=== PATIENT | female | born 1945 | race Asian ===

== ENCOUNTER 2018-04-04 00:31 | Inpatient (IN) | payer MEDICARE, OTHER ==
[~2018-04-04] VITALS: Ht 149.9 cm; Wt 49.4 kg
[2018-04-04 03:29] VITALS: BP 161/83
[2018-04-04] MEDS ORDERED: ACETAMINOPHEN 325 MG TABLET PO PRN (04:00)
[2018-04-04] MEDS ORDERED: MAGNESIUM HYDROXIDE 2,400 MG/30 ML ORAL.SUSP. PO PRN (04:00)
[2018-04-04] MEDS ORDERED: MAG HYDROX/AL HYDROX/SIMETH 30 ML ORAL.SUSP PO PRN (04:00)
[2018-04-04] MEDS ORDERED: METHYL SALICYLATE/MENTHOL TOPICAL OINTMENT 29GM TUBE. TP PRN (04:00)
[2018-04-04] MEDS ORDERED: CHOL10003 PO (04:17)
[2018-04-04] MEDS ORDERED: DONE10TA7 PO (04:17)
[2018-04-04] MEDS ORDERED: DILT120C93 PO (04:17)
[2018-04-04] MEDS ORDERED: DOCU100C28 PO (04:17)
[2018-04-04] MEDS ORDERED: METF500T16 PO (04:17)
[2018-04-04] MEDS ORDERED: MAGN400T3 PO (04:17)
[2018-04-04] MEDS ORDERED: OMEP20TA8 PO (04:17)
[2018-04-04] MEDS ORDERED: CRESTOR10 MG PO (04:17)
[2018-04-04] MEDS ORDERED: OMEG1CAP38 PO (04:17)
[2018-04-04] MEDS ORDERED: POLY2500 PO (04:17)
[2018-04-04] MEDS ORDERED: FLUT50DI IH (04:17)
[2018-04-04] MEDS ORDERED: ASPI-630 PO (04:17)
[2018-04-04] MEDS ORDERED: ALLO100T PO (04:17)
[2018-04-04] MEDS ORDERED: GLYC1SUP RC (04:17)
[2018-04-04] MEDS ORDERED: CYAN100031 PO (04:17)
[2018-04-04] MEDS ORDERED: FERR325T14 PO (04:17)
[2018-04-04] MEDS ORDERED: LORA10TA3 PO (04:17)
[2018-04-04] MEDS ORDERED: CARB25TA3 PO (04:17)
[2018-04-04] MEDS ORDERED: ONDA8TAB9 PO (04:17)
[2018-04-04] MEDS ORDERED: CARB1TAB2 PO (04:17)
[2018-04-04] MEDS ORDERED: MELA3TAB2 PO (04:17)
[2018-04-04] MEDS ORDERED: TELM40TA PO (04:17)
[2018-04-04] MEDS ORDERED: RASA1TAB2 PO (04:17)
[2018-04-04] MEDS ORDERED: ONDANSETRON ODT 4 MG TAB.RAPDIS PO PRN (04:45)
[2018-04-04] MEDS ORDERED: POLYETHYLENE GLYCOL 3350 17 GM PACKET. PO PRN (04:45)
[2018-04-04] MEDS ORDERED: GLYCERIN ADULT 1 SUPP.RECT. RC PRN (04:45)
--- NOTE | 2018-04-04 05:05 | EKG ---
[address] [address] Test Date: 2018-04-04 Test Time: 05:03:41 Pat Name: DORIS GORMAN Department: Room: [facility] Gender: F Test Manager: : [id number] Requested By: MARINA GROVES Order Number: [id number] Reading MD: Sebastien Flannery MD Measurements Intervals [place] Rate: 62 P: 0 CA: 250 QRS: 66 QRSD: 90 T: 41 QT: 446 QTc: 455 Interpretive Statements SINUS RHYTHM PROLONGED CA INTERVAL Electronically Signed On 04-07-2018 11:06:06 CDT by Sebastien Flannery MD
[2018-04-04 05:48] VITALS: BP 123/71
[2018-04-04 07:41] LABS: BASO % 1 % (0-3); EOS # 0.1 x10^3/uL (0.0-0.7); EOS % 1 % (0-3); HEMATOCRIT 33.7 % (36.0-47.0); HEMOGLOBIN 11.6 g/dL (12.0-15.5); LYMPH # 1.7 x10^3/uL (1.0-4.8); LYMPH % 24 % (24-48); MEAN CORPUSCULAR HEMOGLOBIN 33 pg (25-35); MEAN CORPUSCULAR HGB CONC 35 g/dL (31-37); MEAN CORPUSCULAR VOLUME 95 fL (79-100); MONO # 0.4 x10^3/uL (0.0-1.1); MONO % 6 % (0-9); NEUT # 4.8 x10^3uL (1.8-7.7); NEUT % 68 % (31-73); PLATELET COUNT 310 x10^3/uL (140-400); RED BLOOD COUNT 3.54 x10^6/uL (3.50-5.40); RED CELL DISTRIBUTION WIDTH 13.9 % (11.5-14.5)
[2018-04-04 07:49] LABS: ALBUMIN 3.2 g/dL (3.4-5.0); ALBUMIN/GLOBULIN RATIO 0.9 (1.0-1.7); CALCIUM 9.5 mg/dL (8.5-10.1); CREATININE 0.7 mg/dL (0.6-1.0); MAGNESIUM 1.7 mg/dL (1.8-2.4); POTASSIUM 4.1 mmol/L (3.5-5.1); TOTAL BILIRUBIN 0.3 mg/dL (0.2-1.0); TOTAL PROTEIN 6.6 g/dL (6.4-8.2)
[2018-04-04] MEDS: DOCUSATE SODIUM 100 MG CAPSULE PO SCH ×2 (08:08→20:26)
[2018-04-04] MEDS: OMEGA-3 FATTY ACIDS/FISH OIL 1,000 MG CAPSULE. PO SCH (08:08)
[2018-04-04] MEDS: ALLOPURINOL 100 MG TABLET. PO SCH ×3 (08:08→20:27)
[2018-04-04] MEDS: metFORMIN 500 MG TABLET PO SCH ×2 (08:08→17:00)
[2018-04-04] MEDS: PANTOPRAZOLE 40 MG TABLET. PO SCH (08:08)
[2018-04-04] MEDS: CARBIDOPA/LEVODOPA 25/100MG TABLET PO SCH ×4 (08:08→20:27)
[2018-04-04] MEDS: FERROUS SULFATE 325 MG TABLET. PO SCH (08:09)
[2018-04-04] MEDS: CYANOCOBALAMIN (VITAMIN B-12) 1,000 MCG TABLET. PO SCH (08:09)
[2018-04-04] MEDS: MAGNESIUM OXIDE 400 MG TABLET PO SCH ×2 (08:09→20:27)
[2018-04-04] MEDS: CHOLECALCIFEROL (VITAMIN D3) 1,000 UNIT TABLET PO SCH ×2 (08:09→20:27)
[2018-04-04] MEDS: LOSARTAN 50 MG TABLET. PO SCH (08:09)
[2018-04-04] MEDS: FLUTICASONE 50MCG/NASAL SPRAY 16GM BOTTLE. NS SCH (09:00)
[2018-04-04] MEDS: CARBIDOPA 25 MG PO SCH ×3 (09:00→21:00)
[2018-04-04 13:35] LABS: THYROID STIM HORMONE (TSH) 2.067 uIU/mL (0.358-3.740)
[2018-04-04 16:17] VITALS: BP 147/72
[2018-04-04] MEDS: CETIRIZINE HCL 10 MG TABLET PO SCH (17:00)
[2018-04-04] MEDS: ASPIRIN 81 MG TAB.CHEW PO SCH (18:35)
[2018-04-04] MEDS: DONEPEZIL HCL 10 MG TABLET PO SCH (18:35)
[2018-04-04 20:12] LABS: THYROXINE 7.5 ug/dL (4.5-12.0)
--- NOTE | 2018-04-04 20:17 | PDOC ---
Exam Note: Linus Note: Please also refer to the separate dictated note~for this date of service dictated separately.~Patient seen individually. Discussed the patient with Nursing staff reviewed the chart.~Reviewed interim history and current functioning. Reviewed vital signs,~Labs/ Radiology~and current medications noted below. Continue current treatment with the changes noted in the dictated addendum note Assessment: Vital Signs: Vital Signs Date Time Temp Pulse Resp B/P (MAP) Pulse Ox O2 Delivery O2 Flow Rate FiO2 04/04/18 16:17 97.8 65 16 147/72 (97) 98 Room Air I&O Intake and Output 04/04/18 07:00 Intake Total 100 ml Balance 100 ml Intake Oral 100 ml # Voids 1 Labs: Laboratory Tests Test 04/04/18 06:51 White Blood Count 7.0 x10^3/uL (4.0-11.0) Red Blood Count 3.54 x10^6/uL (3.50-5.40) Hemoglobin 11.6 g/dL (12.0-15.5) L Hematocrit 33.7 % (36.0-47.0) L Mean Corpuscular Volume 95 fL (79-100) Mean Corpuscular Hemoglobin 33 pg (25-35) Mean Corpuscular Hemoglobin Concent 35 g/dL (31-37) Red Cell Distribution Width 13.9 % (11.5-14.5) Platelet Count 310 x10^3/uL (140-400) Neutrophils (%) (Auto) 68 % (31-73) Lymphocytes (%) (Auto) 24 % (24-48) Monocytes (%) (Auto) 6 % (0-9) Eosinophils (%) (Auto) 1 % (0-3) Basophils (%) (Auto) 1 % (0-3) Neutrophils # (Auto) 4.8 x10^3uL (1.8-7.7) Lymphocytes # (Auto) 1.7 x10^3/uL (1.0-4.8) Monocytes # (Auto) 0.4 x10^3/uL (0.0-1.1) Eosinophils # (Auto) 0.1 x10^3/uL (0.0-0.7) Basophils # (Auto) 0.0 x10^3/uL (0.0-0.2) Sodium Level 140 mmol/L (136-145) Potassium Level 4.1 mmol/L (3.5-5.1) Chloride Level 103 mmol/L (98-107) Carbon Dioxide Level 33 mmol/L (21-32) H Anion Gap 4 (6-14) L Blood Urea Nitrogen 12 mg/dL (7-20) Creatinine 0.7 mg/dL (0.6-1.0) Estimated GFR (Cockcroft-Gault) 82.0 BUN/Creatinine Ratio 17 (6-20) Glucose Level 103 mg/dL (70-99) H Calcium Level 9.5 mg/dL (8.5-10.1) Magnesium Level 1.7 mg/dL (1.8-2.4) L Iron Level 56 ug/dL (50-170) Total Iron Binding Capacity 272 ug/dL (250-450) Iron Saturation 21 % (15-34) Total Bilirubin 0.3 mg/dL (0.2-1.0) Aspartate Amino Transferase (AST) 20 U/L (15-37) Alanine Aminotransferase (ALT) 28 U/L (14-59) Alkaline Phosphatase 76 U/L (46-116) Total Protein 6.6 g/dL (6.4-8.2) Albumin 3.2 g/dL (3.4-5.0) L Albumin/Globulin Ratio 0.9 (1.0-1.7) L Triglycerides Level 45 mg/dL (0-150) Cholesterol Level 119 mg/dL (0-200) LDL Cholesterol, Calculated 56 mg/dL (0-100) VLDL Cholesterol, Calculated 9 mg/dL (0-40) Non-HDL Cholesterol Calculated 65 mg/dL (0-129) HDL Cholesterol 54 mg/dL (40-60) Cholesterol/HDL Ratio 2.0 Thyroid Stimulating Hormone (TSH) 2.067 uIU/mL (0.358-3.740) Thyroxine (T4) 7.5 ug/dL (4.5-12.0) Total Triiodothyronine (TT3) 121 ng/dL (71-180) Current Medications: Meds: Current Medications Acetaminophen (Tylenol) 650 mg PRN Q6HRS PRN PO PAIN / TEMP; Start 04/04/18 at 04:00 Multi-Ingredient Ointment (Analgesic [place]) 1 torie PRN QID PRN TP MUSCLE PAIN; Start 04/04/18 at 04:00 Al Hydroxide/Mg Hydroxide (Mylanta Plus Xs) 15 ml PRN AFTMEALHC PRN PO DYSPEPSIA; Start 04/04/18 at 04:00 Magnesium Hydroxide (Milk Of Magnesia) 2,400 mg PRN QHS PRN PO CONSTIPATION; Start 04/04/18 at 04:00 Donepezil HCl (Aricept) 10 mg DAILYWSUP PO Last administered on 04/04/18at 18:35 ; Start 04/04/18 at 17:00 Melatonin 12 mg QHS PRN PO INSOMNIA; Start 04/04/18 at 04:30 Carbidopa/Levodopa (Sinemet 25/100) 1 tab QID PO Last administered on 18:35; Start 04/04/18 at 09:00 Vitamin D (Vitamin D3) 2,000 unit BID PO Last administered on 04/04/18 08:09; Start 04/04/18 at 09:00 Ferrous Sulfate (Feosol) 325 mg DAILY PO Last administered on 04/04/18 08:09; Start 04/04/18 at 09:00 Glycerin (Sani-Supp Adult) 1 supp PRN DAILY PRN RC CONSTIPATION; Start at 04:45 Allopurinol (Zyloprim) 100 mg TID PO Last administered on 04/04/18at 13:10; Start 04/04/18 at 09:00 Aspirin (Children'S Aspirin) 81 mg DAILYWSUP PO Last administered on 04/04/18 18:35; Start 04/04/18 at 17:00 Cyanocobalamin (Vitamin B-12) 1,000 mcg DAILY PO Last administered on at 08:09; Start 04/04/18 at 09:00 Diltiazem HCl (Cardizem 24hr Cd) 120 mg DAILY PO Last administered on 08:08; Start 04/04/18 at 09:00 Docusate Sodium (Colace) 100 mg BID PO Last administered on 04/04/18at 08:08; Start 04/04/18 at 09:00 Fluticasone Propionate (Flonase) 2 spray DAILY NS ; Start 04/04/18 at 09:00 Magnesium Oxide (Magnesium Oxide) 400 mg BID PO Last administered on 10/5/18at 08:09; Start 04/04/18 at 09:00 Metformin HCl (Glucophage) 500 mg BIDWMEALS PO Last administered on 04/04/18at 17:00; Start 04/04/18 at 08:00 Fish Oil (Fish Oil) 1,000 mg DAILY PO Last administered on 04/04/18at 08:08; Start 04/04/18 at 09:00 Ondansetron HCl (Zofran Odt) 8 mg PRN BID PRN PO NAUSEA/VOMITING; Start at 04:45 Polyethylene Glycol (miraLAX) 17 gm PRN DAILY PRN PO CONSTIPATION; Start at 04:45 Non-Formulary Medication (Carbidopa ) 25 mg TID PO ; Start 04/04/18 at 09:00; Status UNV Cetirizine HCl (ZyrTEC) 10 mg DAILYWSUP PO Last administered on 04/04/18at 17:00 ; Start 04/04/18 at 17:00 Pantoprazole Sodium (Protonix) 40 mg DAILY@0730 PO Last administered on at 08:08; Start 04/04/18 at 07:30 Non-Formulary Medication (Rasagiline Mesylate (Azilect)) 1 mg DAILY PO ; Start 04/04/18 at 09:00; Status UNV Atorvastatin Calcium (Lipitor) 40 mg HS PO ; Start 04/04/18 at 21:00 Losartan Potassium (Cozaar) 50 mg DAILY PO Last administered on 04/04/18at 08:09 ; Start 04/04/18 at 09:00 Active Scripts Active Reported Ferrous Sulfate 325 Mg Tablet 325 Mg PO DAILY Polyethylene Glycol 3350 2,500 Gm Powder 17 Gm PO PRN DAILY PRN Docusate Sodium 100 Mg Capsule 100 Mg PO BID Micardis (Telmisartan) 40 Mg Tablet 40 Mg PO DAILY Tiazac (Diltiazem Hcl) 120 Mg Capsule.er 120 Mg PO DAILY Allopurinol 100 Mg Tablet 100 Mg PO TID Azilect (Rasagiline Mesylate) 1 Mg Tablet 1 Mg PO DAILY Omeprazole 20 Mg Tablet.dr 20 Mg PO DAILY@0730 Metformin Hcl 500 Mg Tablet 500 Mg PO BIDWMEALS Aspirin 81 Mg Tab.chew 81 Mg PO DAILYWSUP Adult Glycerin (Glycerin) 1 Each Supp.rect 1 Each RC PRN DAILY PRN B-12 (Cyanocobalamin (Vitamin B-12)) 1,000 Mcg Tablet.er 1,000 Mcg PO DAILY Carbidopa 25 Mg Tablet 25 Mg PO TID Donepezil Hcl 10 Mg Tablet 10 Mg PO DAILYWSUP Magnesium Oxide 400 Mg Tablet 400 Mg PO BID Vitamin D3 (Cholecalciferol (Vitamin D3)) 1,000 Unit Tablet 2,000 Unit PO BID Zofran (Ondansetron Hcl) 8 Mg Tablet 8 Mg PO BID Crestor (Rosuvastatin Calcium) 10 Mg Tablet 10 Mg PO HS Flovent 50MCG Diskus (Fluticasone Propionate) 50 Mcg Disk.w.dev 50 Mcg IH DAILY Loratadine 10 Mg Tablet 10 Mg PO DAILYWSUP [place] 3 Fish Oil Softgel ([place]-3 Fatty Acids/Fish Oil) 1 Each Capsule.dr 1 Each PO DAILY Melatonin 3 Mg Tablet 12 Mg PO HS Sinemet 25-100 Mg Tablet (Carbidopa/Levodopa) 1 Each Tablet 1 Each PO QID I have reviewed the current psychotropics carefully including drug interactions. Risk benefit ratio favors no change other than as noted in my dictated progress note. Diagnosis: Problems: (1) Anxiety disorder (2) Major depressive disorder, recurrent episode MARINA GROVES MD Apr 04, 2018 20:17
[2018-04-04] MEDS: MELATONIN 3 MG TABLET PO PRN (20:27)
[2018-04-04] MEDS: ATORVASTATIN CALCIUM 20 MG TABLET PO SCH (20:30)
[2018-04-04 23:08] LABS: HEMOGLOBIN A1C 6.3 % (4.8-5.6)
[2018-04-05 05:55] VITALS: BP 109/67
[2018-04-05] MEDS: ALLOPURINOL 100 MG TABLET. PO SCH ×3 (08:16→21:01)
[2018-04-05] MEDS: LOSARTAN 50 MG TABLET. PO SCH (08:16)
[2018-04-05] MEDS: OMEGA-3 FATTY ACIDS/FISH OIL 1,000 MG CAPSULE. PO SCH (08:16)
[2018-04-05] MEDS: CHOLECALCIFEROL (VITAMIN D3) 1,000 UNIT TABLET PO SCH ×2 (08:16→21:01)
[2018-04-05] MEDS: CYANOCOBALAMIN (VITAMIN B-12) 1,000 MCG TABLET. PO SCH (08:16)
[2018-04-05] MEDS: metFORMIN 500 MG TABLET PO SCH ×2 (08:16→17:00)
[2018-04-05] MEDS: MAGNESIUM OXIDE 400 MG TABLET PO SCH ×2 (08:16→21:01)
[2018-04-05] MEDS: DOCUSATE SODIUM 100 MG CAPSULE PO SCH ×2 (08:16→21:01)
[2018-04-05] MEDS: CARBIDOPA/LEVODOPA 25/100MG TABLET PO SCH ×4 (08:16→21:01)
[2018-04-05] MEDS: CARBIDOPA 25 MG PO SCH ×3 (08:17→21:02)
[2018-04-05] MEDS: FLUTICASONE 50MCG/NASAL SPRAY 16GM BOTTLE. NS SCH (08:17)
[2018-04-05] MEDS: PANTOPRAZOLE 40 MG TABLET. PO SCH (08:17)
[2018-04-05] MEDS: FERROUS SULFATE 325 MG TABLET. PO SCH (08:18)
[2018-04-05] MEDS ORDERED: [UNRECOGNIZED DRUG - OTHER] (11:55)
[2018-04-05 15:48] VITALS: BP 129/75
[2018-04-05] MEDS: CETIRIZINE HCL 10 MG TABLET PO SCH (17:26)
[2018-04-05] MEDS: ASPIRIN 81 MG TAB.CHEW PO SCH (17:26)
[2018-04-05] MEDS: DONEPEZIL HCL 10 MG TABLET PO SCH (17:27)
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
[2018-04-05] MEDS: MELATONIN 3 MG TABLET PO PRN (21:01)
[2018-04-05] MEDS: ATORVASTATIN CALCIUM 20 MG TABLET PO SCH (21:01)
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
[2018-04-06 06:30] VITALS: BP 159/95
[2018-04-06] MEDS ORDERED: BISACODYL 10 MG SUPP.RECT PR PRN (07:30)
[2018-04-06] MEDS: FLUTICASONE 50MCG/NASAL SPRAY 16GM BOTTLE. NS SCH (08:09)
[2018-04-06] MEDS: LOSARTAN 50 MG TABLET. PO SCH (08:09)
[2018-04-06] MEDS: ALLOPURINOL 100 MG TABLET. PO SCH ×3 (08:10→20:21)
[2018-04-06] MEDS: FERROUS SULFATE 325 MG TABLET. PO SCH (08:10)
[2018-04-06] MEDS: MAGNESIUM OXIDE 400 MG TABLET PO SCH ×2 (08:10→20:19)
[2018-04-06] MEDS: metFORMIN 500 MG TABLET PO SCH ×2 (08:10→18:35)
[2018-04-06] MEDS: PANTOPRAZOLE 40 MG TABLET. PO SCH (08:10)
[2018-04-06] MEDS: OMEGA-3 FATTY ACIDS/FISH OIL 1,000 MG CAPSULE. PO SCH (08:10)
[2018-04-06] MEDS: CYANOCOBALAMIN (VITAMIN B-12) 1,000 MCG TABLET. PO SCH (08:10)
[2018-04-06] MEDS: DOCUSATE SODIUM 100 MG CAPSULE PO SCH ×2 (08:10→20:21)
[2018-04-06] MEDS: CHOLECALCIFEROL (VITAMIN D3) 1,000 UNIT TABLET PO SCH ×2 (08:10→20:21)
[2018-04-06] MEDS: CARBIDOPA/LEVODOPA 25/100MG TABLET PO SCH ×4 (08:10→20:19)
[2018-04-06] MEDS: CARBIDOPA 25 MG PO SCH ×3 (08:11→20:22)
[2018-04-06] MEDS: SERTRALINE 50 MG TABLET. PO SCH (08:12)
[2018-04-06 15:24] VITALS: BP 155/76
[2018-04-06] MEDS: ASPIRIN 81 MG TAB.CHEW PO SCH (18:35)
[2018-04-06] MEDS: CETIRIZINE HCL 10 MG TABLET PO SCH (18:35)
[2018-04-06] MEDS: DONEPEZIL HCL 10 MG TABLET PO SCH (18:36)
[2018-04-06] MEDS: ATORVASTATIN CALCIUM 20 MG TABLET PO SCH (20:21)
[2018-04-06] MEDS: MELATONIN 3 MG TABLET PO PRN (20:21)
--- NOTE | 2018-04-06 20:22 | PDOC ---
Exam Note: Linus Note: Late entry for date of service March. Please also refer to the separate dictated note~for this date of service dictated separately.~Patient seen individually. Discussed the patient with Nursing staff reviewed the chart.~ Reviewed interim history and current functioning. Reviewed vital signs,~Labs/ Radiology~and current medications noted below. Continue current treatment with the changes noted in the dictated addendum note Assessment: Vital Signs: VS - Last 72 Hours, by Label Date Time Temp Pulse Resp B/P (MAP) Pulse Ox O2 Delivery O2 Flow Rate FiO2 04/06/18 15:24 97.4 60 18 155/76 (102) 97 Aerosol Mask 04/06/18 08:10 70 159/95 04/06/18 08:09 70 159/95 04/06/18 06:30 97.3 70 14 159/95 (116) 96 04/05/18 15:48 97.3 66 20 129/75 (93) 96 04/05/18 08:16 60 109/67 04/05/18 08:16 60 109/67 04/05/18 05:55 98.2 60 16 109/67 (81) 96 Room Air 04/04/18 16:17 97.8 65 16 147/72 (97) 98 Room Air 04/04/18 08:09 67 123/71 04/04/18 08:08 67 123/71 04/04/18 05:48 97.7 67 16 123/71 (88) 95 Room Air 04/04/18 03:29 97.7 66 161/83 (109) 99 Vital Signs Date Time Temp Pulse Resp B/P (MAP) Pulse Ox O2 Delivery O2 Flow Rate FiO2 04/06/18 15:24 97.4 60 18 155/76 (102) 97 Aerosol Mask I&O Intake and Output 04/06/18 06:59 Intake Total 460 ml Balance 460 ml Intake Oral 460 ml Current Medications: Meds: Current Medications Acetaminophen (Tylenol) 650 mg PRN Q6HRS PRN PO PAIN / TEMP; Start 04/04/18 at 04:00 Multi-Ingredient Ointment (Analgesic [place]) 1 torie PRN QID PRN TP MUSCLE PAIN; Start 04/04/18 at 04:00 Al Hydroxide/Mg Hydroxide (Mylanta Plus Xs) 15 ml PRN AFTMEALHC PRN PO DYSPEPSIA; Start 04/04/18 at 04:00 Magnesium Hydroxide (Milk Of Magnesia) 2,400 mg PRN QHS PRN PO CONSTIPATION Last administered on 04/06/18 07:33; Start 04/04/18 at 04:00 Donepezil HCl (Aricept) 10 mg DAILYWSUP PO Last administered on 04/06/18 18:36 ; Start 04/04/18 at 17:00 Melatonin 12 mg QHS PRN PO INSOMNIA Last administered on 04/05/18 21:01; Start 04/04/18 at 04:30 Carbidopa/Levodopa (Sinemet 25/100) 1 tab QID PO Last administered on 18:35; Start 04/04/18 at 09:00 Vitamin D (Vitamin D3) 2,000 unit BID PO Last administered on 04/06/18 08:10; Start 04/04/18 at 09:00 Ferrous Sulfate (Feosol) 325 mg DAILY PO Last administered on 04/06/18 08:10; Start 04/04/18 at 09:00 Glycerin (Sani-Supp Adult) 1 supp PRN DAILY PRN RC CONSTIPATION; Start at 04:45 Allopurinol (Zyloprim) 100 mg TID PO Last administered on 04/06/18 13:49; Start 04/04/18 at 09:00 Aspirin (Children'S Aspirin) 81 mg DAILYWSUP PO Last administered on 04/06/18 18:35; Start 04/04/18 at 17:00 Cyanocobalamin (Vitamin B-12) 1,000 mcg DAILY PO Last administered on 08:10; Start 04/04/18 at 09:00 Diltiazem HCl (Cardizem 24hr Cd) 120 mg DAILY PO Last administered on 08:10; Start 04/04/18 at 09:00 Docusate Sodium (Colace) 100 mg BID PO Last administered on 04/06/18 08:10; Start 04/04/18 at 09:00 Fluticasone Propionate (Flonase) 2 spray DAILY NS Last administered on 08:09; Start 04/04/18 at 09:00 Magnesium Oxide (Magnesium Oxide) 400 mg BID PO Last administered on 04/06/18 08:10; Start 04/04/18 at 09:00 Metformin HCl (Glucophage) 500 mg BIDWMEALS PO Last administered on 04/06/18 18:35; Start 04/04/18 at 08:00 Fish Oil (Fish Oil) 1,000 mg DAILY PO Last administered on 04/06/18 08:10; Start 04/04/18 at 09:00 Ondansetron HCl (Zofran Odt) 8 mg PRN BID PRN PO NAUSEA/VOMITING; Start at 04:45 Polyethylene Glycol (miraLAX) 17 gm PRN DAILY PRN PO CONSTIPATION; Start at 04:45 Non-Formulary Medication (Carbidopa ) 25 mg TID PO Last administered on 13:49; Start 04/04/18 at 09:00 Cetirizine HCl (ZyrTEC) 10 mg DAILYWSUP PO Last administered on 04/06/18 18:35 ; Start 04/04/18 at 17:00 Pantoprazole Sodium (Protonix) 40 mg DAILY@0730 PO Last administered on 08:10; Start 04/04/18 at 07:30 Non-Formulary Medication (Rasagiline Mesylate (Azilect)) 1 mg DAILY PO Last administered on 04/05/18 13:35; Start 04/04/18 at 09:00 Atorvastatin Calcium (Lipitor) 40 mg HS PO Last administered on 04/05/18 21:01 ; Start 04/04/18 at 21:00 Losartan Potassium (Cozaar) 50 mg DAILY PO Last administered on 04/06/18 08:09 ; Start 04/04/18 at 09:00 Influenza Virus Vaccine (Afluria Trivalent [id number] Syringe) 0.5 ml ONCE ONCE VAX IM Last administered on 04/06/18 11:05; Start 04/06/18 at 09:00; Stop 04/06/18 at 09:01; Status DC Sertraline HCl (Zoloft) 50 mg DAILY PO Last administered on 04/06/18 08:12; Start 04/06/18 at 09:00 Bisacodyl (Dulcolax Supp) 10 mg PRN DAILY PRN [place] CONSTIPATION Last administered on 10/7/18at 09:00; Start 04/06/18 at 07:30; Stop 04/06/18 at 10:04 ; Status DC Active Scripts Active Reported [ceta klen] Ferrous Sulfate 325 Mg Tablet 325 Mg PO DAILY Polyethylene Glycol 3350 2,500 Gm Powder 17 Gm PO PRN DAILY PRN Docusate Sodium 100 Mg Capsule 100 Mg PO BID Micardis (Telmisartan) 40 Mg Tablet 40 Mg PO DAILY Tiazac (Diltiazem Hcl) 120 Mg Capsule.er 120 Mg PO DAILY Allopurinol 100 Mg Tablet 100 Mg PO TID Azilect (Rasagiline Mesylate) 1 Mg Tablet 1 Mg PO DAILY Omeprazole 20 Mg Tablet.dr 20 Mg PO DAILY@0730 Metformin Hcl 500 Mg Tablet 500 Mg PO BIDWMEALS Aspirin 81 Mg Tab.chew 81 Mg PO DAILYWSUP Adult Glycerin (Glycerin) 1 Each Supp.rect 1 Each RC PRN DAILY PRN B-12 (Cyanocobalamin (Vitamin B-12)) 1,000 Mcg Tablet.er 1,000 Mcg PO DAILY Carbidopa 25 Mg Tablet 25 Mg PO TID Donepezil Hcl 10 Mg Tablet 10 Mg PO DAILYWSUP Magnesium Oxide 400 Mg Tablet 400 Mg PO BID Vitamin D3 (Cholecalciferol (Vitamin D3)) 1,000 Unit Tablet 2,000 Unit PO BID Zofran (Ondansetron Hcl) 8 Mg Tablet 8 Mg PO BID Crestor (Rosuvastatin Calcium) 10 Mg Tablet 10 Mg PO HS Flovent 50MCG Diskus (Fluticasone Propionate) 50 Mcg Disk.w.dev 50 Mcg IH DAILY Loratadine 10 Mg Tablet 10 Mg PO DAILYWSUP [place] 3 Fish Oil Softgel ([place]-3 Fatty Acids/Fish Oil) 1 Each Capsule.dr 1 Each PO DAILY Melatonin 3 Mg Tablet 12 Mg PO HS Sinemet 25-100 Mg Tablet (Carbidopa/Levodopa) 1 Each Tablet 1 Each PO QID I have reviewed the current psychotropics carefully including drug interactions. Risk benefit ratio favors no change other than as noted in my dictated progress note. Diagnosis: Problems: (1) Anxiety disorder (2) Major depressive disorder, recurrent episode (3) Impulse control disorder MARINA GROVES MD Apr 06, 2018 20:22
--- NOTE | 2018-04-06 20:22 | PDOC ---
Exam Note: Linus Note: Please also refer to the separate dictated note~for this date of service dictated separately.~Patient seen individually. Discussed the patient with Nursing staff reviewed the chart.~Reviewed interim history and current functioning. Reviewed vital signs,~Labs/ Radiology~and current medications noted below. Continue current treatment with the changes noted in the dictated addendum note Assessment: Vital Signs: Vital Signs Date Time Temp Pulse Resp B/P (MAP) Pulse Ox O2 Delivery O2 Flow Rate FiO2 04/06/18 15:24 97.4 60 18 155/76 (102) 97 Aerosol Mask I&O Intake and Output 04/06/18 06:59 Intake Total 460 ml Balance 460 ml Intake Oral 460 ml Current Medications: Meds: Current Medications Acetaminophen (Tylenol) 650 mg PRN Q6HRS PRN PO PAIN / TEMP; Start 04/04/18 at 04:00 Multi-Ingredient Ointment (Analgesic [place]) 1 torie PRN QID PRN TP MUSCLE PAIN; Start 04/04/18 at 04:00 Al Hydroxide/Mg Hydroxide (Mylanta Plus Xs) 15 ml PRN AFTMEALHC PRN PO DYSPEPSIA; Start 04/04/18 at 04:00 Magnesium Hydroxide (Milk Of Magnesia) 2,400 mg PRN QHS PRN PO CONSTIPATION Last administered on 04/06/18at 07:33; Start 04/04/18 at 04:00 Donepezil HCl (Aricept) 10 mg DAILYWSUP PO Last administered on 04/06/18at 18:36 ; Start 04/04/18 at 17:00 Melatonin 12 mg QHS PRN PO INSOMNIA Last administered on 04/05/18at 21:01; Start 04/04/18 at 04:30 Carbidopa/Levodopa (Sinemet 25/100) 1 tab QID PO Last administered on at 18:35; Start 04/04/18 at 09:00 Vitamin D (Vitamin D3) 2,000 unit BID PO Last administered on 04/06/18at 08:10; Start 04/04/18 at 09:00 Ferrous Sulfate (Feosol) 325 mg DAILY PO Last administered on 04/06/18at 08:10; Start 04/04/18 at 09:00 Glycerin (Sani-Supp Adult) 1 supp PRN DAILY PRN RC CONSTIPATION; Start at 04:45 Allopurinol (Zyloprim) 100 mg TID PO Last administered on 04/06/18 13:49; Start 04/04/18 at 09:00 Aspirin (Children'S Aspirin) 81 mg DAILYWSUP PO Last administered on 04/06/18 18:35; Start 04/04/18 at 17:00 Cyanocobalamin (Vitamin B-12) 1,000 mcg DAILY PO Last administered on 08:10; Start 04/04/18 at 09:00 Diltiazem HCl (Cardizem 24hr Cd) 120 mg DAILY PO Last administered on 08:10; Start 04/04/18 at 09:00 Docusate Sodium (Colace) 100 mg BID PO Last administered on 04/06/18 08:10; Start 04/04/18 at 09:00 Fluticasone Propionate (Flonase) 2 spray DAILY NS Last administered on 08:09; Start 04/04/18 at 09:00 Magnesium Oxide (Magnesium Oxide) 400 mg BID PO Last administered on 04/06/18 08:10; Start 04/04/18 at 09:00 Metformin HCl (Glucophage) 500 mg BIDWMEALS PO Last administered on 04/06/18 18:35; Start 04/04/18 at 08:00 Fish Oil (Fish Oil) 1,000 mg DAILY PO Last administered on 04/06/18 08:10; Start 04/04/18 at 09:00 Ondansetron HCl (Zofran Odt) 8 mg PRN BID PRN PO NAUSEA/VOMITING; Start at 04:45 Polyethylene Glycol (miraLAX) 17 gm PRN DAILY PRN PO CONSTIPATION; Start at 04:45 Non-Formulary Medication (Carbidopa ) 25 mg TID PO Last administered on 13:49; Start 04/04/18 at 09:00 Cetirizine HCl (ZyrTEC) 10 mg DAILYWSUP PO Last administered on 04/06/18 18:35 ; Start 04/04/18 at 17:00 Pantoprazole Sodium (Protonix) 40 mg DAILY@0730 PO Last administered on 08:10; Start 04/04/18 at 07:30 Non-Formulary Medication (Rasagiline Mesylate (Azilect)) 1 mg DAILY PO Last administered on 04/05/18at 13:35; Start 04/04/18 at 09:00 Atorvastatin Calcium (Lipitor) 40 mg HS PO Last administered on 04/05/18at 21:01 ; Start 04/04/18 at 21:00 Losartan Potassium (Cozaar) 50 mg DAILY PO Last administered on 04/06/18at 08:09 ; Start 04/04/18 at 09:00 Influenza Virus Vaccine (Afluria Trivalent [id number] Syringe) 0.5 ml ONCE ONCE VAX IM Last administered on 04/06/18at 11:05; Start 04/06/18 at 09:00; Stop 04/06/18 at 09:01; Status DC Sertraline HCl (Zoloft) 50 mg DAILY PO Last administered on 04/06/18at 08:12; Start 04/06/18 at 09:00 Bisacodyl (Dulcolax Supp) 10 mg PRN DAILY PRN [place] CONSTIPATION Last administered on 04/06/18at 09:00; Start 04/06/18 at 07:30; Stop 04/06/18 at 10:04 ; Status DC Active Scripts Active Reported [ceta klen] Ferrous Sulfate 325 Mg Tablet 325 Mg PO DAILY Polyethylene Glycol 3350 2,500 Gm Powder 17 Gm PO PRN DAILY PRN Docusate Sodium 100 Mg Capsule 100 Mg PO BID Micardis (Telmisartan) 40 Mg Tablet 40 Mg PO DAILY Tiazac (Diltiazem Hcl) 120 Mg Capsule.er 120 Mg PO DAILY Allopurinol 100 Mg Tablet 100 Mg PO TID Azilect (Rasagiline Mesylate) 1 Mg Tablet 1 Mg PO DAILY Omeprazole 20 Mg Tablet.dr 20 Mg PO DAILY@0730 Metformin Hcl 500 Mg Tablet 500 Mg PO BIDWMEALS Aspirin 81 Mg Tab.chew 81 Mg PO DAILYWSUP Adult Glycerin (Glycerin) 1 Each Supp.rect 1 Each RC PRN DAILY PRN B-12 (Cyanocobalamin (Vitamin B-12)) 1,000 Mcg Tablet.er 1,000 Mcg PO DAILY Carbidopa 25 Mg Tablet 25 Mg PO TID Donepezil Hcl 10 Mg Tablet 10 Mg PO DAILYWSUP Magnesium Oxide 400 Mg Tablet 400 Mg PO BID Vitamin D3 (Cholecalciferol (Vitamin D3)) 1,000 Unit Tablet 2,000 Unit PO BID Zofran (Ondansetron Hcl) 8 Mg Tablet 8 Mg PO BID Crestor (Rosuvastatin Calcium) 10 Mg Tablet 10 Mg PO HS Flovent 50MCG Diskus (Fluticasone Propionate) 50 Mcg Disk.w.dev 50 Mcg IH DAILY Loratadine 10 Mg Tablet 10 Mg PO DAILYWSUP [place] 3 Fish Oil Softgel ([place]-3 Fatty Acids/Fish Oil) 1 Each Capsule.dr 1 Each PO DAILY Melatonin 3 Mg Tablet 12 Mg PO HS Sinemet 25-100 Mg Tablet (Carbidopa/Levodopa) 1 Each Tablet 1 Each PO QID I have reviewed the current psychotropics carefully including drug interactions. Risk benefit ratio favors no change other than as noted in my dictated progress note. Diagnosis: Problems: (1) Anxiety disorder (2) Major depressive disorder, recurrent episode (3) Impulse control disorder MARINA GROVES MD Apr 06, 2018 20:22
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
[2018-04-07 05:58] VITALS: BP 122/63
[2018-04-07] MEDS: SERTRALINE 50 MG TABLET. PO SCH (07:54)
[2018-04-07] MEDS: DOCUSATE SODIUM 100 MG CAPSULE PO SCH ×2 (07:54→19:45)
[2018-04-07] MEDS: FERROUS SULFATE 325 MG TABLET. PO SCH (07:54)
[2018-04-07] MEDS: PANTOPRAZOLE 40 MG TABLET. PO SCH (07:55)
[2018-04-07] MEDS: CHOLECALCIFEROL (VITAMIN D3) 1,000 UNIT TABLET PO SCH ×2 (07:55→19:45)
[2018-04-07] MEDS: metFORMIN 500 MG TABLET PO SCH ×2 (07:55→17:45)
[2018-04-07] MEDS: MAGNESIUM OXIDE 400 MG TABLET PO SCH ×2 (07:55→19:46)
[2018-04-07] MEDS: CYANOCOBALAMIN (VITAMIN B-12) 1,000 MCG TABLET. PO SCH (07:55)
[2018-04-07] MEDS: OMEGA-3 FATTY ACIDS/FISH OIL 1,000 MG CAPSULE. PO SCH (07:55)
[2018-04-07] MEDS: CARBIDOPA/LEVODOPA 25/100MG TABLET PO SCH ×4 (07:55→19:46)
[2018-04-07] MEDS: LOSARTAN 50 MG TABLET. PO SCH (07:57)
[2018-04-07] MEDS: ALLOPURINOL 100 MG TABLET. PO SCH ×3 (07:57→19:46)
[2018-04-07] MEDS: FLUTICASONE 50MCG/NASAL SPRAY 16GM BOTTLE. NS SCH (07:58)
[2018-04-07] MEDS: CARBIDOPA 25 MG PO SCH ×3 (07:59→19:46)
[2018-04-07 15:52] VITALS: BP 142/68
[2018-04-07] MEDS: DONEPEZIL HCL 10 MG TABLET PO SCH (17:45)
[2018-04-07] MEDS: CETIRIZINE HCL 10 MG TABLET PO SCH (17:45)
[2018-04-07] MEDS: ASPIRIN 81 MG TAB.CHEW PO SCH (17:45)
[2018-04-07] MEDS: ATORVASTATIN CALCIUM 20 MG TABLET PO SCH (19:45)
--- NOTE | 2018-04-07 20:52 | PDOC ---
Exam Note: Linus Note: Please also refer to the separate dictated note~for this date of service dictated separately.~Patient seen individually. Discussed the patient with Nursing staff reviewed the chart.~Reviewed interim history and current functioning. Reviewed vital signs,~Labs/ Radiology~and current medications noted below. Continue current treatment with the changes noted in the dictated addendum note Assessment: Vital Signs: Vital Signs Date Time Temp Pulse Resp B/P (MAP) Pulse Ox O2 Delivery O2 Flow Rate FiO2 04/07/18 15:52 98.0 60 16 142/68 (92) 98 04/07/18 05:58 Room Air I&O Intake and Output 04/07/18 06:59 Intake Total 720 ml Balance 720 ml Intake Oral 720 ml Current Medications: Meds: Current Medications Acetaminophen (Tylenol) 650 mg PRN Q6HRS PRN PO PAIN / TEMP; Start 04/04/18 at 04:00 Multi-Ingredient Ointment (Analgesic [place]) 1 torie PRN QID PRN TP MUSCLE PAIN; Start 04/04/18 at 04:00 Al Hydroxide/Mg Hydroxide (Mylanta Plus Xs) 15 ml PRN AFTMEALHC PRN PO DYSPEPSIA; Start 04/04/18 at 04:00 Magnesium Hydroxide (Milk Of Magnesia) 2,400 mg PRN QHS PRN PO CONSTIPATION Last administered on 04/06/18at 07:33; Start 04/04/18 at 04:00 Donepezil HCl (Aricept) 10 mg DAILYWSUP PO Last administered on 04/07/18 17:45 ; Start 04/04/18 at 17:00 Melatonin 12 mg QHS PRN PO INSOMNIA Last administered on 04/06/18 20:21; Start 04/04/18 at 04:30 Carbidopa/Levodopa (Sinemet 25/100) 1 tab QID PO Last administered on 19:46; Start 04/04/18 at 09:00 Vitamin D (Vitamin D3) 2,000 unit BID PO Last administered on 04/07/18 19:45; Start 04/04/18 at 09:00 Ferrous Sulfate (Feosol) 325 mg DAILY PO Last administered on 04/07/18at 07:54; Start 04/04/18 at 09:00 Glycerin (Sani-Supp Adult) 1 supp PRN DAILY PRN RC CONSTIPATION; Start at 04:45 Allopurinol (Zyloprim) 100 mg TID PO Last administered on 04/07/18 19:46; Start 04/04/18 at 09:00 Aspirin (Children'S Aspirin) 81 mg DAILYWSUP PO Last administered on 04/07/18 17:45; Start 04/04/18 at 17:00 Cyanocobalamin (Vitamin B-12) 1,000 mcg DAILY PO Last administered on 07:55; Start 04/04/18 at 09:00 Diltiazem HCl (Cardizem 24hr Cd) 120 mg DAILY PO Last administered on 07:56; Start 04/04/18 at 09:00 Docusate Sodium (Colace) 100 mg BID PO Last administered on 04/07/18 19:45; Start 04/04/18 at 09:00 Fluticasone Propionate (Flonase) 2 spray DAILY NS Last administered on 07:58; Start 04/04/18 at 09:00 Magnesium Oxide (Magnesium Oxide) 400 mg BID PO Last administered on 04/07/18 19:46; Start 04/04/18 at 09:00 Metformin HCl (Glucophage) 500 mg BIDWMEALS PO Last administered on 04/07/18 17:45; Start 04/04/18 at 08:00 Fish Oil (Fish Oil) 1,000 mg DAILY PO Last administered on 04/07/18 07:55; Start 04/04/18 at 09:00 Ondansetron HCl (Zofran Odt) 8 mg PRN BID PRN PO NAUSEA/VOMITING; Start at 04:45 Polyethylene Glycol (miraLAX) 17 gm PRN DAILY PRN PO CONSTIPATION; Start at 04:45 Non-Formulary Medication (Carbidopa ) 25 mg TID PO Last administered on 19:46; Start 04/04/18 at 09:00 Cetirizine HCl (ZyrTEC) 10 mg DAILYWSUP PO Last administered on 04/07/18 17:45 ; Start 04/04/18 at 17:00 Pantoprazole Sodium (Protonix) 40 mg DAILY@0730 PO Last administered on 10/8/ 18at 07:55; Start 04/04/18 at 07:30 Non-Formulary Medication (Rasagiline Mesylate (Azilect)) 1 mg DAILY PO Last administered on 04/07/18at 07:57; Start 04/04/18 at 09:00 Atorvastatin Calcium (Lipitor) 40 mg HS PO Last administered on 04/07/18at 19:45 ; Start 04/04/18 at 21:00 Losartan Potassium (Cozaar) 50 mg DAILY PO Last administered on 04/07/18at 07:57 ; Start 04/04/18 at 09:00 Influenza Virus Vaccine (Afluria Trivalent [id number] Syringe) 0.5 ml ONCE ONCE VAX IM Last administered on 04/06/18at 11:05; Start 04/06/18 at 09:00; Stop 04/06/18 at 09:01; Status DC Sertraline HCl (Zoloft) 50 mg DAILY PO Last administered on 04/07/18at 07:54; Start 04/06/18 at 09:00 Bisacodyl (Dulcolax Supp) 10 mg PRN DAILY PRN [place] CONSTIPATION Last administered on 04/06/18at 09:00; Start 04/06/18 at 07:30; Stop 04/06/18 at 10:04 ; Status DC Active Scripts Active Reported [ceta klen] Ferrous Sulfate 325 Mg Tablet 325 Mg PO DAILY Polyethylene Glycol 3350 2,500 Gm Powder 17 Gm PO PRN DAILY PRN Docusate Sodium 100 Mg Capsule 100 Mg PO BID Micardis (Telmisartan) 40 Mg Tablet 40 Mg PO DAILY Tiazac (Diltiazem Hcl) 120 Mg Capsule.er 120 Mg PO DAILY Allopurinol 100 Mg Tablet 100 Mg PO TID Azilect (Rasagiline Mesylate) 1 Mg Tablet 1 Mg PO DAILY Omeprazole 20 Mg Tablet.dr 20 Mg PO DAILY@0730 Metformin Hcl 500 Mg Tablet 500 Mg PO BIDWMEALS Aspirin 81 Mg Tab.chew 81 Mg PO DAILYWSUP Adult Glycerin (Glycerin) 1 Each Supp.rect 1 Each RC PRN DAILY PRN B-12 (Cyanocobalamin (Vitamin B-12)) 1,000 Mcg Tablet.er 1,000 Mcg PO DAILY Carbidopa 25 Mg Tablet 25 Mg PO TID Donepezil Hcl 10 Mg Tablet 10 Mg PO DAILYWSUP Magnesium Oxide 400 Mg Tablet 400 Mg PO BID Vitamin D3 (Cholecalciferol (Vitamin D3)) 1,000 Unit Tablet 2,000 Unit PO BID Zofran (Ondansetron Hcl) 8 Mg Tablet 8 Mg PO BID Crestor (Rosuvastatin Calcium) 10 Mg Tablet 10 Mg PO HS Flovent 50MCG Diskus (Fluticasone Propionate) 50 Mcg Disk.w.dev 50 Mcg IH DAILY Loratadine 10 Mg Tablet 10 Mg PO DAILYWSUP [place] 3 Fish Oil Softgel ([place]-3 Fatty Acids/Fish Oil) 1 Each Capsule.dr 1 Each PO DAILY Melatonin 3 Mg Tablet 12 Mg PO HS Sinemet 25-100 Mg Tablet (Carbidopa/Levodopa) 1 Each Tablet 1 Each PO QID I have reviewed the current psychotropics carefully including drug interactions. Risk benefit ratio favors no change other than as noted in my dictated progress note. Diagnosis: Problems: (1) Anxiety disorder (2) Major depressive disorder, recurrent episode (3) Impulse control disorder MAIRNA GROVES MD Apr 07, 2018 20:52
[2018-04-08 06:10] VITALS: BP 133/79
[2018-04-08] MEDS: CHOLECALCIFEROL (VITAMIN D3) 1,000 UNIT TABLET PO SCH ×2 (07:51→20:25)
[2018-04-08] MEDS: OMEGA-3 FATTY ACIDS/FISH OIL 1,000 MG CAPSULE. PO SCH (07:51)
[2018-04-08] MEDS: ALLOPURINOL 100 MG TABLET. PO SCH ×3 (07:52→20:25)
[2018-04-08] MEDS: SERTRALINE 50 MG TABLET. PO SCH (07:52)
[2018-04-08] MEDS: DOCUSATE SODIUM 100 MG CAPSULE PO SCH ×2 (07:52→20:25)
[2018-04-08] MEDS: PANTOPRAZOLE 40 MG TABLET. PO SCH (07:52)
[2018-04-08] MEDS: FERROUS SULFATE 325 MG TABLET. PO SCH (07:52)
[2018-04-08] MEDS: metFORMIN 500 MG TABLET PO SCH ×2 (07:52→17:27)
[2018-04-08] MEDS: CYANOCOBALAMIN (VITAMIN B-12) 1,000 MCG TABLET. PO SCH (07:52)
[2018-04-08] MEDS: MAGNESIUM OXIDE 400 MG TABLET PO SCH ×2 (07:55→20:25)
[2018-04-08] MEDS: CARBIDOPA 25 MG PO SCH ×3 (07:55→20:26)
[2018-04-08] MEDS: LOSARTAN 50 MG TABLET. PO SCH (07:55)
[2018-04-08] MEDS: CARBIDOPA/LEVODOPA 25/100MG TABLET PO SCH ×4 (07:55→20:25)
[2018-04-08] MEDS: FLUTICASONE 50MCG/NASAL SPRAY 16GM BOTTLE. NS SCH (08:00)
[2018-04-08 16:40] VITALS: BP 118/55
[2018-04-08] MEDS ORDERED: POLYVINYL ALCOHOL/POVIDONE/PF OPHTH SOLUTION DROPERETTE. OU PRN (16:45)
[2018-04-08] MEDS: CETIRIZINE HCL 10 MG TABLET PO SCH (17:27)
[2018-04-08] MEDS: ASPIRIN 81 MG TAB.CHEW PO SCH (17:27)
[2018-04-08] MEDS: DONEPEZIL HCL 10 MG TABLET PO SCH (17:30)
[2018-04-08] MEDS: ATORVASTATIN CALCIUM 20 MG TABLET PO SCH (20:25)
[2018-04-08] MEDS: MELATONIN 3 MG TABLET PO PRN (20:26)
--- NOTE | 2018-04-08 21:06 | PDOC ---
Exam Note: Linus Note: Please also refer to the separate dictated note~for this date of service dictated separately.~Patient seen individually. Discussed the patient with Nursing staff reviewed the chart.~Reviewed interim history and current functioning. Reviewed vital signs,~Labs/ Radiology~and current medications noted below. Continue current treatment with the changes noted in the dictated addendum note Assessment: Vital Signs: Vital Signs Date Time Temp Pulse Resp B/P (MAP) Pulse Ox O2 Delivery O2 Flow Rate FiO2 04/08/18 16:40 97.6 61 20 118/55 (76) 98 04/07/18 05:58 Room Air I&O Intake and Output 04/08/18 07:00 Intake Total 720 ml Balance 720 ml Intake Oral 720 ml # Voids 1 Current Medications: Meds: Current Medications Acetaminophen (Tylenol) 650 mg PRN Q6HRS PRN PO PAIN / TEMP; Start 04/04/18 at 04:00 Multi-Ingredient Ointment (Analgesic [place]) 1 torie PRN QID PRN TP MUSCLE PAIN; Start 04/04/18 at 04:00 Al Hydroxide/Mg Hydroxide (Mylanta Plus Xs) 15 ml PRN AFTMEALHC PRN PO DYSPEPSIA; Start 04/04/18 at 04:00 Magnesium Hydroxide (Milk Of Magnesia) 2,400 mg PRN QHS PRN PO CONSTIPATION Last administered on 04/06/18at 07:33; Start 04/04/18 at 04:00 Donepezil HCl (Aricept) 10 mg DAILYWSUP PO Last administered on 04/08/18at 17:30 ; Start 04/04/18 at 17:00 Melatonin 12 mg QHS PRN PO INSOMNIA Last administered on 04/08/18at 20:26; Start 04/04/18 at 04:30 Carbidopa/Levodopa (Sinemet 25/100) 1 tab QID PO Last administered on 20:25; Start 04/04/18 at 09:00 Vitamin D (Vitamin D3) 2,000 unit BID PO Last administered on 04/08/18at 20:25; Start 04/04/18 at 09:00 Ferrous Sulfate (Feosol) 325 mg DAILY PO Last administered on 04/08/18at 07:52; Start 04/04/18 at 09:00 Glycerin (Sani-Supp Adult) 1 supp PRN DAILY PRN RC CONSTIPATION; Start at 04:45 Allopurinol (Zyloprim) 100 mg TID PO Last administered on 04/08/18 20:25; Start 04/04/18 at 09:00 Aspirin (Children'S Aspirin) 81 mg DAILYWSUP PO Last administered on 04/08/18 17:27; Start 04/04/18 at 17:00 Cyanocobalamin (Vitamin B-12) 1,000 mcg DAILY PO Last administered on 07:52; Start 04/04/18 at 09:00 Diltiazem HCl (Cardizem 24hr Cd) 120 mg DAILY PO Last administered on 07:53; Start 04/04/18 at 09:00 Docusate Sodium (Colace) 100 mg BID PO Last administered on 04/08/18 20:25; Start 04/04/18 at 09:00 Fluticasone Propionate (Flonase) 2 spray DAILY NS Last administered on 08:00; Start 04/04/18 at 09:00 Magnesium Oxide (Magnesium Oxide) 400 mg BID PO Last administered on 04/08/18 20:25; Start 04/04/18 at 09:00 Metformin HCl (Glucophage) 500 mg BIDWMEALS PO Last administered on 04/08/18 17:27; Start 04/04/18 at 08:00 Fish Oil (Fish Oil) 1,000 mg DAILY PO Last administered on 04/08/18 07:51; Start 04/04/18 at 09:00 Ondansetron HCl (Zofran Odt) 8 mg PRN BID PRN PO NAUSEA/VOMITING; Start at 04:45 Polyethylene Glycol (miraLAX) 17 gm PRN DAILY PRN PO CONSTIPATION; Start at 04:45 Non-Formulary Medication (Carbidopa ) 25 mg TID PO Last administered on 20:26; Start 04/04/18 at 09:00 Cetirizine HCl (ZyrTEC) 10 mg DAILYWSUP PO Last administered on 04/08/18 17:27 ; Start 04/04/18 at 17:00 Pantoprazole Sodium (Protonix) 40 mg DAILY@0730 PO Last administered on at 07:52; Start 04/04/18 at 07:30 Non-Formulary Medication (Rasagiline Mesylate (Azilect)) 1 mg DAILY PO Last administered on 04/08/18at 07:58; Start 04/04/18 at 09:00 Atorvastatin Calcium (Lipitor) 40 mg HS PO Last administered on 04/08/18at 20:25 ; Start 04/04/18 at 21:00 Losartan Potassium (Cozaar) 50 mg DAILY PO Last administered on 04/08/18at 07:55 ; Start 04/04/18 at 09:00 Influenza Virus Vaccine (Afluria Trivalent [id number] Syringe) 0.5 ml ONCE ONCE VAX IM Last administered on 04/06/18at 11:05; Start 04/06/18 at 09:00; Stop 04/06/18 at 09:01; Status DC Sertraline HCl (Zoloft) 50 mg DAILY PO Last administered on 04/08/18at 07:52; Start 04/06/18 at 09:00 Bisacodyl (Dulcolax Supp) 10 mg PRN DAILY PRN [place] CONSTIPATION Last administered on 04/06/18at 09:00; Start 04/06/18 at 07:30; Stop 04/06/18 at 10:04 ; Status DC Artificial Tears (Refresh Classic) 1 drop PRN Q15MIN PRN OU DRY EYE; Start 04/08/18 at 16:45 Active Scripts Active Reported [ceta klen] Ferrous Sulfate 325 Mg Tablet 325 Mg PO DAILY Polyethylene Glycol 3350 2,500 Gm Powder 17 Gm PO PRN DAILY PRN Docusate Sodium 100 Mg Capsule 100 Mg PO BID Micardis (Telmisartan) 40 Mg Tablet 40 Mg PO DAILY Tiazac (Diltiazem Hcl) 120 Mg Capsule.er 120 Mg PO DAILY Allopurinol 100 Mg Tablet 100 Mg PO TID Azilect (Rasagiline Mesylate) 1 Mg Tablet 1 Mg PO DAILY Omeprazole 20 Mg Tablet.dr 20 Mg PO DAILY@0730 Metformin Hcl 500 Mg Tablet 500 Mg PO BIDWMEALS Aspirin 81 Mg Tab.chew 81 Mg PO DAILYWSUP Adult Glycerin (Glycerin) 1 Each Supp.rect 1 Each RC PRN DAILY PRN B-12 (Cyanocobalamin (Vitamin B-12)) 1,000 Mcg Tablet.er 1,000 Mcg PO DAILY Carbidopa 25 Mg Tablet 25 Mg PO TID Donepezil Hcl 10 Mg Tablet 10 Mg PO DAILYWSUP Magnesium Oxide 400 Mg Tablet 400 Mg PO BID Vitamin D3 (Cholecalciferol (Vitamin D3)) 1,000 Unit Tablet 2,000 Unit PO BID Zofran (Ondansetron Hcl) 8 Mg Tablet 8 Mg PO BID Crestor (Rosuvastatin Calcium) 10 Mg Tablet 10 Mg PO HS Flovent 50MCG Diskus (Fluticasone Propionate) 50 Mcg Disk.w.dev 50 Mcg IH DAILY Loratadine 10 Mg Tablet 10 Mg PO DAILYWSUP [place] 3 Fish Oil Softgel ([place]-3 Fatty Acids/Fish Oil) 1 Each Capsule.dr 1 Each PO DAILY Melatonin 3 Mg Tablet 12 Mg PO HS Sinemet 25-100 Mg Tablet (Carbidopa/Levodopa) 1 Each Tablet 1 Each PO QID I have reviewed the current psychotropics carefully including drug interactions. Risk benefit ratio favors no change other than as noted in my dictated progress note. Diagnosis: Problems: (1) Anxiety disorder (2) Major depressive disorder, recurrent episode (3) Impulse control disorder MARINA GROVES MD Apr 08, 2018 21:06
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
[2018-04-09 06:06] VITALS: BP 139/83
[2018-04-09] MEDS: DOCUSATE SODIUM 100 MG CAPSULE PO SCH ×2 (07:45→19:50)
[2018-04-09] MEDS: PANTOPRAZOLE 40 MG TABLET. PO SCH (07:45)
[2018-04-09] MEDS: OMEGA-3 FATTY ACIDS/FISH OIL 1,000 MG CAPSULE. PO SCH (07:45)
[2018-04-09] MEDS: CHOLECALCIFEROL (VITAMIN D3) 1,000 UNIT TABLET PO SCH ×2 (07:45→19:50)
[2018-04-09] MEDS: FLUTICASONE 50MCG/NASAL SPRAY 16GM BOTTLE. NS SCH (07:45)
[2018-04-09] MEDS: FERROUS SULFATE 325 MG TABLET. PO SCH (07:46)
[2018-04-09] MEDS: metFORMIN 500 MG TABLET PO SCH ×2 (07:46→17:50)
[2018-04-09] MEDS: ALLOPURINOL 100 MG TABLET. PO SCH ×3 (07:46→19:49)
[2018-04-09] MEDS: CYANOCOBALAMIN (VITAMIN B-12) 1,000 MCG TABLET. PO SCH (07:47)
[2018-04-09] MEDS: SERTRALINE 50 MG TABLET. PO SCH (07:47)
[2018-04-09] MEDS: LOSARTAN 50 MG TABLET. PO SCH (07:47)
[2018-04-09] MEDS: CARBIDOPA 25 MG PO SCH ×3 (07:49→19:53)
[2018-04-09] MEDS: CARBIDOPA/LEVODOPA 25/100MG TABLET PO SCH ×4 (07:51→19:50)
[2018-04-09] MEDS: MAGNESIUM OXIDE 400 MG TABLET PO SCH ×2 (07:51→19:50)
[2018-04-09 16:14] VITALS: BP 133/75
[2018-04-09] MEDS: ASPIRIN 81 MG TAB.CHEW PO SCH (17:49)
[2018-04-09] MEDS: CETIRIZINE HCL 10 MG TABLET PO SCH (17:49)
[2018-04-09] MEDS: DONEPEZIL HCL 10 MG TABLET PO SCH (17:49)
[2018-04-09] MEDS: ATORVASTATIN CALCIUM 20 MG TABLET PO SCH (19:49)
[2018-04-09] MEDS: MELATONIN 3 MG TABLET PO PRN (19:50)
--- NOTE | 2018-04-09 20:57 | PDOC ---
Exam Note: Linus Note: Please also refer to the separate dictated note~for this date of service dictated separately.~Patient seen individually. Discussed the patient with Nursing staff reviewed the chart.~Reviewed interim history and current functioning. Reviewed vital signs,~Labs/ Radiology~and current medications noted below. Continue current treatment with the changes noted in the dictated addendum note Assessment: Vital Signs: Vital Signs Date Time Temp Pulse Resp B/P (MAP) Pulse Ox O2 Delivery O2 Flow Rate FiO2 04/09/18 16:14 98.1 66 16 133/75 (94) 95 04/07/18 05:58 Room Air I&O Intake and Output 04/09/18 07:00 Intake Total 1320 ml Balance 1320 ml Intake Oral 1320 ml Current Medications: Meds: Current Medications Acetaminophen (Tylenol) 650 mg PRN Q6HRS PRN PO PAIN / TEMP; Start 04/04/18 at 04:00 Multi-Ingredient Ointment (Analgesic [place]) 1 torie PRN QID PRN TP MUSCLE PAIN; Start 04/04/18 at 04:00 Al Hydroxide/Mg Hydroxide (Mylanta Plus Xs) 15 ml PRN AFTMEALHC PRN PO DYSPEPSIA; Start 04/04/18 at 04:00 Magnesium Hydroxide (Milk Of Magnesia) 2,400 mg PRN QHS PRN PO CONSTIPATION Last administered on 04/06/18at 07:33; Start 04/04/18 at 04:00 Donepezil HCl (Aricept) 10 mg DAILYWSUP PO Last administered on 04/09/18at 17: 49; Start 04/04/18 at 17:00 Melatonin 12 mg QHS PRN PO INSOMNIA Last administered on 04/09/18 19:50; Start 04/04/18 at 04:30 Carbidopa/Levodopa (Sinemet 25/100) 1 tab QID PO Last administered on 19:50; Start 04/04/18 at 09:00 Vitamin D (Vitamin D3) 2,000 unit BID PO Last administered on 04/09/18 19:50 ; Start 04/04/18 at 09:00 Ferrous Sulfate (Feosol) 325 mg DAILY PO Last administered on 04/09/18at 07:46 ; Start 04/04/18 at 09:00 Glycerin (Sani-Supp Adult) 1 supp PRN DAILY PRN RC CONSTIPATION; Start at 04:45 Allopurinol (Zyloprim) 100 mg TID PO Last administered on 04/09/18 19:49; Start 04/04/18 at 09:00 Aspirin (Children'S Aspirin) 81 mg DAILYWSUP PO Last administered on 17:49; Start 04/04/18 at 17:00 Cyanocobalamin (Vitamin B-12) 1,000 mcg DAILY PO Last administered on 07:47; Start 04/04/18 at 09:00 Diltiazem HCl (Cardizem 24hr Cd) 120 mg DAILY PO Last administered on 07:46; Start 04/04/18 at 09:00 Docusate Sodium (Colace) 100 mg BID PO Last administered on 04/09/18 19:50; Start 04/04/18 at 09:00 Fluticasone Propionate (Flonase) 2 spray DAILY NS Last administered on 07:45; Start 04/04/18 at 09:00 Magnesium Oxide (Magnesium Oxide) 400 mg BID PO Last administered on 19:50; Start 04/04/18 at 09:00 Metformin HCl (Glucophage) 500 mg BIDWMEALS PO Last administered on 04/09/18 17:50; Start 04/04/18 at 08:00 Fish Oil (Fish Oil) 1,000 mg DAILY PO Last administered on 04/09/18 07:45; Start 04/04/18 at 09:00 Ondansetron HCl (Zofran Odt) 8 mg PRN BID PRN PO NAUSEA/VOMITING; Start at 04:45 Polyethylene Glycol (miraLAX) 17 gm PRN DAILY PRN PO CONSTIPATION; Start at 04:45 Non-Formulary Medication (Carbidopa ) 25 mg TID PO Last administered on 19:53; Start 04/04/18 at 09:00 Cetirizine HCl (ZyrTEC) 10 mg DAILYWSUP PO Last administered on 04/09/18 17: 49; Start 04/04/18 at 17:00 Pantoprazole Sodium (Protonix) 40 mg DAILY@0730 PO Last administered on at 07:45; Start 04/04/18 at 07:30 Non-Formulary Medication (Rasagiline Mesylate (Azilect)) 1 mg DAILY PO Last administered on 04/09/18at 07:49; Start 04/04/18 at 09:00 Atorvastatin Calcium (Lipitor) 40 mg HS PO Last administered on 04/09/18at 19: 49; Start 04/04/18 at 21:00 Losartan Potassium (Cozaar) 50 mg DAILY PO Last administered on 04/09/18at 07: 47; Start 04/04/18 at 09:00 Influenza Virus Vaccine (Afluria Trivalent [id number] Syringe) 0.5 ml ONCE ONCE VAX IM Last administered on 04/06/18at 11:05; Start 04/06/18 at 09:00; Stop 04/06/18 at 09:01; Status DC Sertraline HCl (Zoloft) 50 mg DAILY PO Last administered on 04/09/18at 07:47; Start 04/06/18 at 09:00; Stop 04/09/18 at 17:02; Status DC Bisacodyl (Dulcolax Supp) 10 mg PRN DAILY PRN [place] CONSTIPATION Last administered on 04/06/18at 09:00; Start 04/06/18 at 07:30; Stop 04/06/18 at 10:04 ; Status DC Artificial Tears (Refresh Classic) 1 drop PRN Q15MIN PRN OU DRY EYE Last administered on 04/09/18at 14:01; Start 04/08/18 at 16:45 Sertraline HCl (Zoloft) 75 mg DAILY PO ; Start 04/10/18 at 09:00 Active Scripts Active Reported [ceta klen] Ferrous Sulfate 325 Mg Tablet 325 Mg PO DAILY Polyethylene Glycol 3350 2,500 Gm Powder 17 Gm PO PRN DAILY PRN Docusate Sodium 100 Mg Capsule 100 Mg PO BID Micardis (Telmisartan) 40 Mg Tablet 40 Mg PO DAILY Tiazac (Diltiazem Hcl) 120 Mg Capsule.er 120 Mg PO DAILY Allopurinol 100 Mg Tablet 100 Mg PO TID Azilect (Rasagiline Mesylate) 1 Mg Tablet 1 Mg PO DAILY Omeprazole 20 Mg Tablet.dr 20 Mg PO DAILY@0730 Metformin Hcl 500 Mg Tablet 500 Mg PO BIDWMEALS Aspirin 81 Mg Tab.chew 81 Mg PO DAILYWSUP Adult Glycerin (Glycerin) 1 Each Supp.rect 1 Each RC PRN DAILY PRN B-12 (Cyanocobalamin (Vitamin B-12)) 1,000 Mcg Tablet.er 1,000 Mcg PO DAILY Carbidopa 25 Mg Tablet 25 Mg PO TID Donepezil Hcl 10 Mg Tablet 10 Mg PO DAILYWSUP Magnesium Oxide 400 Mg Tablet 400 Mg PO BID Vitamin D3 (Cholecalciferol (Vitamin D3)) 1,000 Unit Tablet 2,000 Unit PO BID Zofran (Ondansetron Hcl) 8 Mg Tablet 8 Mg PO BID Crestor (Rosuvastatin Calcium) 10 Mg Tablet 10 Mg PO HS Flovent 50MCG Diskus (Fluticasone Propionate) 50 Mcg Disk.w.dev 50 Mcg IH DAILY Loratadine 10 Mg Tablet 10 Mg PO DAILYWSUP [place] 3 Fish Oil Softgel ([place]-3 Fatty Acids/Fish Oil) 1 Each Capsule.dr 1 Each PO DAILY Melatonin 3 Mg Tablet 12 Mg PO HS Sinemet 25-100 Mg Tablet (Carbidopa/Levodopa) 1 Each Tablet 1 Each PO QID I have reviewed the current psychotropics carefully including drug interactions. Risk benefit ratio favors no change other than as noted in my dictated progress note. Diagnosis: Problems: (1) Anxiety disorder (2) Major depressive disorder, recurrent episode (3) Impulse control disorder MARINA GROVES MD Apr 09, 2018 20:57
--- NOTE | 2018-04-09 21:08 | PN ---
DATE: 04/08/2018 PSYCHIATRIC PROGRESS NOTE This late entry 04/08/2018 covers elements not covered in my initial note. SUBJECTIVE: I met with the patient in the evening. The patient slept 8 hours previous evening. The patient has been flat, withdrawn. Her did not visit on 04/08/2018. REVIEW OF SYSTEMS: No CV, , pulmonary, eye, ENT system symptoms on review. MENTAL STATUS EXAM: Oriented to herself and situation. Speech moderate latency, often responses monosyllabic. Abstraction fair, computation impaired, language function intact. Mood and affect somewhat depressed. No suicidal or homicidal ideation. LABORATORY DATA: Reviewed. IMPRESSION: Unchanged from initial note. PLAN: No change from initial note. Continue Aricept, Exelon, and Zoloft. MAN Michael GROVES MD DR: ROMAN/ino JOB#: [id number] / [id number]
[2018-04-10 06:11] VITALS: BP 117/72
[2018-04-10] MEDS: FLUTICASONE 50MCG/NASAL SPRAY 16GM BOTTLE. NS SCH (07:55)
[2018-04-10] MEDS: CARBIDOPA 25 MG PO SCH ×3 (07:55→20:42)
[2018-04-10] MEDS: DOCUSATE SODIUM 100 MG CAPSULE PO SCH ×2 (07:56→20:42)
[2018-04-10] MEDS: LOSARTAN 50 MG TABLET. PO SCH (07:57)
[2018-04-10] MEDS: CETIRIZINE HCL 10 MG TABLET PO SCH (07:57)
[2018-04-10] MEDS: OMEGA-3 FATTY ACIDS/FISH OIL 1,000 MG CAPSULE. PO SCH (07:57)
[2018-04-10] MEDS: CHOLECALCIFEROL (VITAMIN D3) 1,000 UNIT TABLET PO SCH ×2 (07:57→20:42)
[2018-04-10] MEDS: FERROUS SULFATE 325 MG TABLET. PO SCH (07:57)
[2018-04-10] MEDS: ALLOPURINOL 100 MG TABLET. PO SCH ×3 (07:57→20:42)
[2018-04-10] MEDS: metFORMIN 500 MG TABLET PO SCH ×2 (07:57→17:05)
[2018-04-10] MEDS: MAGNESIUM OXIDE 400 MG TABLET PO SCH ×2 (07:57→20:42)
[2018-04-10] MEDS: CARBIDOPA/LEVODOPA 25/100MG TABLET PO SCH ×4 (07:58→20:42)
[2018-04-10] MEDS: PANTOPRAZOLE 40 MG TABLET. PO SCH (07:58)
[2018-04-10] MEDS: CYANOCOBALAMIN (VITAMIN B-12) 1,000 MCG TABLET. PO SCH (07:58)
[2018-04-10] MEDS: SERTRALINE 50 MG TABLET. PO SCH (08:01)
[2018-04-10 16:37] VITALS: BP 149/75
[2018-04-10] MEDS: ASPIRIN 81 MG TAB.CHEW PO SCH (17:05)
[2018-04-10] MEDS: DONEPEZIL HCL 10 MG TABLET PO SCH (17:05)
[2018-04-10] MEDS: ATORVASTATIN CALCIUM 20 MG TABLET PO SCH (20:42)
--- NOTE | 2018-04-10 20:45 | PDOC ---
Exam Note: Linus Note: Please also refer to the separate dictated note~for this date of service dictated separately.~Patient seen individually. Discussed the patient with Nursing staff reviewed the chart.~Reviewed interim history and current functioning. Reviewed vital signs,~Labs/ Radiology~and current medications noted below. Continue current treatment with the changes noted in the dictated addendum note Assessment: Vital Signs: Vital Signs Date Time Temp Pulse Resp B/P (MAP) Pulse Ox O2 Delivery O2 Flow Rate FiO2 04/10/18 16:37 97.7 61 18 149/75 (99) 96 Room Air I&O Intake and Output 04/10/18 07:00 Intake Total 720 ml Balance 720 ml Intake Oral 720 ml # Voids 1 Current Medications: Meds: Current Medications Acetaminophen (Tylenol) 650 mg PRN Q6HRS PRN PO PAIN / TEMP; Start 04/04/18 at 04:00 Multi-Ingredient Ointment (Analgesic [place]) 1 torie PRN QID PRN TP MUSCLE PAIN; Start 04/04/18 at 04:00 Al Hydroxide/Mg Hydroxide (Mylanta Plus Xs) 15 ml PRN AFTMEALHC PRN PO DYSPEPSIA; Start 04/04/18 at 04:00 Magnesium Hydroxide (Milk Of Magnesia) 2,400 mg PRN QHS PRN PO CONSTIPATION Last administered on 04/06/18at 07:33; Start 04/04/18 at 04:00 Donepezil HCl (Aricept) 10 mg DAILYWSUP PO Last administered on 04/10/18at 17: 05; Start 04/04/18 at 17:00 Melatonin 12 mg QHS PRN PO INSOMNIA Last administered on 04/09/18at 19:50; Start 04/04/18 at 04:30 Carbidopa/Levodopa (Sinemet 25/100) 1 tab QID PO Last administered on at 20:42; Start 04/04/18 at 09:00 Vitamin D (Vitamin D3) 2,000 unit BID PO Last administered on 04/10/18at 20:42 ; Start 04/04/18 at 09:00 Ferrous Sulfate (Feosol) 325 mg DAILY PO Last administered on 04/10/18at 07:57 ; Start 04/04/18 at 09:00 Glycerin (Sani-Supp Adult) 1 supp PRN DAILY PRN RC CONSTIPATION; Start at 04:45 Allopurinol (Zyloprim) 100 mg TID PO Last administered on 04/10/18 20:42; Start 04/04/18 at 09:00 Aspirin (Children'S Aspirin) 81 mg DAILYWSUP PO Last administered on 17:05; Start 04/04/18 at 17:00 Cyanocobalamin (Vitamin B-12) 1,000 mcg DAILY PO Last administered on 07:58; Start 04/04/18 at 09:00 Diltiazem HCl (Cardizem 24hr Cd) 120 mg DAILY PO Last administered on 08:01; Start 04/04/18 at 09:00 Docusate Sodium (Colace) 100 mg BID PO Last administered on 04/10/18 20:42; Start 04/04/18 at 09:00 Fluticasone Propionate (Flonase) 2 spray DAILY NS Last administered on 07:55; Start 04/04/18 at 09:00 Magnesium Oxide (Magnesium Oxide) 400 mg BID PO Last administered on 20:42; Start 04/04/18 at 09:00 Metformin HCl (Glucophage) 500 mg BIDWMEALS PO Last administered on 04/10/18 17:05; Start 04/04/18 at 08:00 Fish Oil (Fish Oil) 1,000 mg DAILY PO Last administered on 04/10/18 07:57; Start 04/04/18 at 09:00 Ondansetron HCl (Zofran Odt) 8 mg PRN BID PRN PO NAUSEA/VOMITING; Start at 04:45 Polyethylene Glycol (miraLAX) 17 gm PRN DAILY PRN PO CONSTIPATION; Start at 04:45 Non-Formulary Medication (Carbidopa ) 25 mg TID PO Last administered on 20:42; Start 04/04/18 at 09:00 Cetirizine HCl (ZyrTEC) 10 mg DAILYWSUP PO Last administered on 04/10/18 07: 57; Start 04/04/18 at 17:00 Pantoprazole Sodium (Protonix) 40 mg DAILY@0730 PO Last administered on 10/11/ 18at 07:58; Start 04/04/18 at 07:30 Non-Formulary Medication (Rasagiline Mesylate (Azilect)) 1 mg DAILY PO Last administered on 04/10/18at 08:03; Start 04/04/18 at 09:00 Atorvastatin Calcium (Lipitor) 40 mg HS PO Last administered on 04/10/18at 20: 42; Start 04/04/18 at 21:00 Losartan Potassium (Cozaar) 50 mg DAILY PO Last administered on 04/10/18at 07: 57; Start 04/04/18 at 09:00 Influenza Virus Vaccine (Afluria Trivalent [id number] Syringe) 0.5 ml ONCE ONCE VAX IM Last administered on 04/06/18at 11:05; Start 04/06/18 at 09:00; Stop 04/06/18 at 09:01; Status DC Sertraline HCl (Zoloft) 50 mg DAILY PO Last administered on 04/09/18at 07:47; Start 04/06/18 at 09:00; Stop 04/09/18 at 17:02; Status DC Bisacodyl (Dulcolax Supp) 10 mg PRN DAILY PRN [place] CONSTIPATION Last administered on 04/06/18at 09:00; Start 04/06/18 at 07:30; Stop 04/06/18 at 10:04 ; Status DC Artificial Tears (Refresh Classic) 1 drop PRN Q15MIN PRN OU DRY EYE Last administered on 04/09/18at 14:01; Start 04/08/18 at 16:45 Sertraline HCl (Zoloft) 75 mg DAILY PO Last administered on 04/10/18at 08:01; Start 04/10/18 at 09:00 Active Scripts Active Reported [ceta klen] Ferrous Sulfate 325 Mg Tablet 325 Mg PO DAILY Polyethylene Glycol 3350 2,500 Gm Powder 17 Gm PO PRN DAILY PRN Docusate Sodium 100 Mg Capsule 100 Mg PO BID Micardis (Telmisartan) 40 Mg Tablet 40 Mg PO DAILY Tiazac (Diltiazem Hcl) 120 Mg Capsule.er 120 Mg PO DAILY Allopurinol 100 Mg Tablet 100 Mg PO TID Azilect (Rasagiline Mesylate) 1 Mg Tablet 1 Mg PO DAILY Omeprazole 20 Mg Tablet.dr 20 Mg PO DAILY@0730 Metformin Hcl 500 Mg Tablet 500 Mg PO BIDWMEALS Aspirin 81 Mg Tab.chew 81 Mg PO DAILYWSUP Adult Glycerin (Glycerin) 1 Each Supp.rect 1 Each RC PRN DAILY PRN B-12 (Cyanocobalamin (Vitamin B-12)) 1,000 Mcg Tablet.er 1,000 Mcg PO DAILY Carbidopa 25 Mg Tablet 25 Mg PO TID Donepezil Hcl 10 Mg Tablet 10 Mg PO DAILYWSUP Magnesium Oxide 400 Mg Tablet 400 Mg PO BID Vitamin D3 (Cholecalciferol (Vitamin D3)) 1,000 Unit Tablet 2,000 Unit PO BID Zofran (Ondansetron Hcl) 8 Mg Tablet 8 Mg PO BID Crestor (Rosuvastatin Calcium) 10 Mg Tablet 10 Mg PO HS Flovent 50MCG Diskus (Fluticasone Propionate) 50 Mcg Disk.w.dev 50 Mcg IH DAILY Loratadine 10 Mg Tablet 10 Mg PO DAILYWSUP [place] 3 Fish Oil Softgel ([place]-3 Fatty Acids/Fish Oil) 1 Each Capsule.dr 1 Each PO DAILY Melatonin 3 Mg Tablet 12 Mg PO HS Sinemet 25-100 Mg Tablet (Carbidopa/Levodopa) 1 Each Tablet 1 Each PO QID I have reviewed the current psychotropics carefully including drug interactions. Risk benefit ratio favors no change other than as noted in my dictated progress note. Diagnosis: Problems: (1) Anxiety disorder (2) Major depressive disorder, recurrent episode (3) Impulse control disorder MARINA GROVES MD Apr 10, 2018 20:45
[2018-04-11 06:08] VITALS: BP 136/78
[2018-04-11] MEDS: MAGNESIUM OXIDE 400 MG TABLET PO SCH ×2 (08:08→19:54)
[2018-04-11] MEDS: OMEGA-3 FATTY ACIDS/FISH OIL 1,000 MG CAPSULE. PO SCH (08:08)
[2018-04-11] MEDS: FERROUS SULFATE 325 MG TABLET. PO SCH (08:08)
[2018-04-11] MEDS: CHOLECALCIFEROL (VITAMIN D3) 1,000 UNIT TABLET PO SCH ×2 (08:09→19:54)
[2018-04-11] MEDS: PANTOPRAZOLE 40 MG TABLET. PO SCH (08:09)
[2018-04-11] MEDS: CARBIDOPA/LEVODOPA 25/100MG TABLET PO SCH ×4 (08:09→19:55)
[2018-04-11] MEDS: LOSARTAN 50 MG TABLET. PO SCH (08:09)
[2018-04-11] MEDS: ALLOPURINOL 100 MG TABLET. PO SCH ×3 (08:09→19:54)
[2018-04-11] MEDS: SERTRALINE 50 MG TABLET. PO SCH (08:09)
[2018-04-11] MEDS: FLUTICASONE 50MCG/NASAL SPRAY 16GM BOTTLE. NS SCH (08:10)
[2018-04-11] MEDS: metFORMIN 500 MG TABLET PO SCH ×2 (08:16→16:55)
[2018-04-11] MEDS: DOCUSATE SODIUM 100 MG CAPSULE PO SCH ×2 (08:17→19:54)
[2018-04-11] MEDS: CARBIDOPA 25 MG PO SCH ×3 (08:19→19:53)
[2018-04-11] MEDS: CYANOCOBALAMIN (VITAMIN B-12) 1,000 MCG TABLET. PO SCH (08:21)
[2018-04-11] MEDS ORDERED: Influenza vaccine per PROTOCOL. MC PRN (12:30)
[2018-04-11 15:48] VITALS: BP 156/71
[2018-04-11] MEDS: ASPIRIN 81 MG TAB.CHEW PO SCH (16:55)
[2018-04-11] MEDS: CETIRIZINE HCL 10 MG TABLET PO SCH (16:55)
[2018-04-11] MEDS: DONEPEZIL HCL 10 MG TABLET PO SCH (16:55)
[2018-04-11] MEDS: ATORVASTATIN CALCIUM 20 MG TABLET PO SCH (19:55)
[2018-04-11] MEDS: MELATONIN 3 MG TABLET PO PRN (19:55)
--- NOTE | 2018-04-11 20:47 | PN ---
DATE: 04/09/2018 PSYCHIATRIC PROGRESS NOTE This late entry 04/09/2018 covers elements not covered in my initial note. SUBJECTIVE: I met with the patient in the evening. The patient slept 7-1/4 hours previous night. She is complaining of some nausea, vomiting around breakfast time. Her visited at lunchtime. They had a better conversation. He is more accepting of needing to make changes and how he interacts with her and how he is verbally abrasive with her. Addressed this with him. REVIEW OF SYSTEMS: No CV, , pulmonary, eye, ENT system symptoms on review. Reliability fair. MENTAL STATUS EXAM: Oriented to herself and situation. Speech moderate latency, coherent, often responses monosyllabic. Abstraction fair. Computation, able to do one step serial 7's, some of this is due to constraints of communication. No active suicidal or homicidal ideation. LABORATORY DATA: Reviewed. IMPRESSION: Major depressive disorder, recurrent, in partial remission; anxiety disorder, unspecified phase of life problem/marital communication problems. PLAN: From a psychiatric standpoint, continue Aricept, Exelon, and after she has been on Zoloft 50 mg a day for 3 days, we will increase to 75 mg. MARINA GROVES MD DR: ROMAN/ino JOB#: [id number] / [id number]
--- NOTE | 2018-04-11 20:48 | PDOC ---
Exam Note: Linus Note: Please also refer to the separate dictated note~for this date of service dictated separately.~Patient seen individually. Discussed the patient with Nursing staff reviewed the chart.~Reviewed interim history and current functioning. Reviewed vital signs,~Labs/ Radiology~and current medications noted below. Continue current treatment with the changes noted in the dictated addendum note Assessment: Vital Signs: Vital Signs Date Time Temp Pulse Resp B/P (MAP) Pulse Ox O2 Delivery O2 Flow Rate FiO2 04/11/18 15:48 98.1 60 16 156/71 (99) 97 Room Air I&O Intake and Output 04/11/18 07:00 Intake Total 960 ml Balance 960 ml Intake Oral 960 ml Current Medications: Meds: Current Medications Acetaminophen (Tylenol) 650 mg PRN Q6HRS PRN PO PAIN / TEMP; Start 04/04/18 at 04:00 Multi-Ingredient Ointment (Analgesic [place]) 1 torie PRN QID PRN TP MUSCLE PAIN; Start 04/04/18 at 04:00 Al Hydroxide/Mg Hydroxide (Mylanta Plus Xs) 15 ml PRN AFTMEALHC PRN PO DYSPEPSIA; Start 04/04/18 at 04:00 Magnesium Hydroxide (Milk Of Magnesia) 2,400 mg PRN QHS PRN PO CONSTIPATION Last administered on 04/06/18at 07:33; Start 04/04/18 at 04:00 Donepezil HCl (Aricept) 10 mg DAILYWSUP PO Last administered on 04/11/18at 16: 55; Start 04/04/18 at 17:00 Melatonin 12 mg QHS PRN PO INSOMNIA Last administered on 04/11/18at 19:55; Start 04/04/18 at 04:30 Carbidopa/Levodopa (Sinemet 25/100) 1 tab QID PO Last administered on at 19:55; Start 04/04/18 at 09:00 Vitamin D (Vitamin D3) 2,000 unit BID PO Last administered on 04/11/18at 19:54 ; Start 04/04/18 at 09:00 Ferrous Sulfate (Feosol) 325 mg DAILY PO Last administered on 04/11/18at 08:08 ; Start 04/04/18 at 09:00 Glycerin (Sani-Supp Adult) 1 supp PRN DAILY PRN RC CONSTIPATION; Start at 04:45 Allopurinol (Zyloprim) 100 mg TID PO Last administered on 04/11/18 19:54; Start 04/04/18 at 09:00 Aspirin (Children'S Aspirin) 81 mg DAILYWSUP PO Last administered on 16:55; Start 04/04/18 at 17:00 Cyanocobalamin (Vitamin B-12) 1,000 mcg DAILY PO Last administered on 08:21; Start 04/04/18 at 09:00 Diltiazem HCl (Cardizem 24hr Cd) 120 mg DAILY PO Last administered on 08:10; Start 04/04/18 at 09:00 Docusate Sodium (Colace) 100 mg BID PO Last administered on 04/11/18 19:54; Start 04/04/18 at 09:00 Fluticasone Propionate (Flonase) 2 spray DAILY NS Last administered on 08:10; Start 04/04/18 at 09:00 Magnesium Oxide (Magnesium Oxide) 400 mg BID PO Last administered on 19:54; Start 04/04/18 at 09:00 Metformin HCl (Glucophage) 500 mg BIDWMEALS PO Last administered on 04/11/18 16:55; Start 04/04/18 at 08:00 Fish Oil (Fish Oil) 1,000 mg DAILY PO Last administered on 04/11/18 08:08; Start 04/04/18 at 09:00 Ondansetron HCl (Zofran Odt) 8 mg PRN BID PRN PO NAUSEA/VOMITING; Start at 04:45 Polyethylene Glycol (miraLAX) 17 gm PRN DAILY PRN PO CONSTIPATION; Start at 04:45 Non-Formulary Medication (Carbidopa ) 25 mg TID PO Last administered on 19:53; Start 04/04/18 at 09:00 Cetirizine HCl (ZyrTEC) 10 mg DAILYWSUP PO Last administered on 04/11/18 16: 55; Start 04/04/18 at 17:00 Pantoprazole Sodium (Protonix) 40 mg DAILY@0730 PO Last administered on 10/12/ 18at 08:09; Start 04/04/18 at 07:30 Non-Formulary Medication (Rasagiline Mesylate (Azilect)) 1 mg DAILY PO Last administered on 04/11/18 08:16; Start 04/04/18 at 09:00 Atorvastatin Calcium (Lipitor) 40 mg HS PO Last administered on 04/11/18at 19: 55; Start 04/04/18 at 21:00 Losartan Potassium (Cozaar) 50 mg DAILY PO Last administered on 04/11/18at 08: 09; Start 04/04/18 at 09:00 Influenza Virus Vaccine ([facility]) 0.5 ml ONCE ONCE VAX IM Last administered on 04/06/18 11:05; Start 04/06/18 at 09:00; Stop 04/06/18 at 09:01; Status DC Sertraline HCl (Zoloft) 50 mg DAILY PO Last administered on 04/09/18at 07:47; Start 04/06/18 at 09:00; Stop 04/09/18 at 17:02; Status DC Bisacodyl (Dulcolax Supp) 10 mg PRN DAILY PRN [place] CONSTIPATION Last administered on 04/06/18at 09:00; Start 04/06/18 at 07:30; Stop 04/06/18 at 10:04 ; Status DC Artificial Tears (Refresh Classic) 1 drop PRN Q15MIN PRN OU DRY EYE Last administered on 04/09/18at 14:01; Start 04/08/18 at 16:45 Sertraline HCl (Zoloft) 75 mg DAILY PO Last administered on 04/11/18at 08:09; Start 04/10/18 at 09:00 Info (FLU VACCINE per PROTOCOL) 1 ea PRN 1X PRN MC PER PROTOCOL; Start at 12:30; Status UNV Influenza Virus Vaccine ([facility] Trivalent Syringe) 0.5 ml ONCE ONCE VAX IM Last administered on 04/11/18at 13:24; Start 04/11/18 at 13:00; Stop 04/11/18 at 13:01; Status DC Active Scripts Active Reported [ceta klen] Ferrous Sulfate 325 Mg Tablet 325 Mg PO DAILY Polyethylene Glycol 3350 2,500 Gm Powder 17 Gm PO PRN DAILY PRN Docusate Sodium 100 Mg Capsule 100 Mg PO BID Micardis (Telmisartan) 40 Mg Tablet 40 Mg PO DAILY Tiazac (Diltiazem Hcl) 120 Mg Capsule.er 120 Mg PO DAILY Allopurinol 100 Mg Tablet 100 Mg PO TID Azilect (Rasagiline Mesylate) 1 Mg Tablet 1 Mg PO DAILY Omeprazole 20 Mg Tablet.dr 20 Mg PO DAILY@0730 Metformin Hcl 500 Mg Tablet 500 Mg PO BIDWMEALS Aspirin 81 Mg Tab.chew 81 Mg PO DAILYWSUP Adult Glycerin (Glycerin) 1 Each Supp.rect 1 Each RC PRN DAILY PRN B-12 (Cyanocobalamin (Vitamin B-12)) 1,000 Mcg Tablet.er 1,000 Mcg PO DAILY Carbidopa 25 Mg Tablet 25 Mg PO TID Donepezil Hcl 10 Mg Tablet 10 Mg PO DAILYWSUP Magnesium Oxide 400 Mg Tablet 400 Mg PO BID Vitamin D3 (Cholecalciferol (Vitamin D3)) 1,000 Unit Tablet 2,000 Unit PO BID Zofran (Ondansetron Hcl) 8 Mg Tablet 8 Mg PO BID Crestor (Rosuvastatin Calcium) 10 Mg Tablet 10 Mg PO HS Flovent 50MCG Diskus (Fluticasone Propionate) 50 Mcg Disk.w.dev 50 Mcg IH DAILY Loratadine 10 Mg Tablet 10 Mg PO DAILYWSUP [place] 3 Fish Oil Softgel ([place]-3 Fatty Acids/Fish Oil) 1 Each Capsule.dr 1 Each PO DAILY Melatonin 3 Mg Tablet 12 Mg PO HS Sinemet 25-100 Mg Tablet (Carbidopa/Levodopa) 1 Each Tablet 1 Each PO QID I have reviewed the current psychotropics carefully including drug interactions. Risk benefit ratio favors no change other than as noted in my dictated progress note. Diagnosis: Problems: (1) Anxiety disorder (2) Major depressive disorder, recurrent episode (3) Impulse control disorder MARINA GROVES MD Apr 11, 2018 20:48
--- NOTE | 2018-04-11 22:29 | PN ---
DATE: 04/10/2018 This late entry for 04/10/2018 covers elements not covered in my initial note. SUBJECTIVE: I met with the patient in the evening. Overall, the patient is doing better. She is still withdrawn, but had a visit with her and feels he is more responsive to her and less agitated and less verbally abrasive. She is able to communicate this despite the language barrier. REVIEW OF SYSTEMS: No CV, , pulmonary, eye, ENT system symptoms on review. MENTAL STATUS EXAM: Reasonably oriented. Speech has some latency, coherent, often responses monosyllabic, pleasant, smiling at me as I met with her. No CV, , pulmonary, eye system symptoms on review. No suicidal or homicidal ideation. Attention span fair. Mood somewhat dysphoric, but improved. Affect is mood congruent. LABORATORY DATA: Reviewed. IMPRESSION: Major depressive disorder in partial remission. Rest unchanged. PLAN: No change from initial note. MARINA GROVES MD DR: ROMAN/ino JOB#: [id number] / [id number]
[2018-04-12 05:45] VITALS: BP 144/80
[2018-04-12] MEDS: PANTOPRAZOLE 40 MG TABLET. PO SCH (09:25)
[2018-04-12] MEDS: metFORMIN 500 MG TABLET PO SCH ×2 (09:26→17:01)
[2018-04-12] MEDS: CYANOCOBALAMIN (VITAMIN B-12) 1,000 MCG TABLET. PO SCH (09:26)
[2018-04-12] MEDS: CARBIDOPA/LEVODOPA 25/100MG TABLET PO SCH ×4 (09:26→21:20)
[2018-04-12] MEDS: CHOLECALCIFEROL (VITAMIN D3) 1,000 UNIT TABLET PO SCH ×2 (09:27→21:20)
[2018-04-12] MEDS: OMEGA-3 FATTY ACIDS/FISH OIL 1,000 MG CAPSULE. PO SCH (09:28)
[2018-04-12] MEDS: MAGNESIUM OXIDE 400 MG TABLET PO SCH ×2 (09:28→21:20)
[2018-04-12] MEDS: ALLOPURINOL 100 MG TABLET. PO SCH ×3 (09:28→21:20)
[2018-04-12] MEDS: SERTRALINE 50 MG TABLET. PO SCH (09:28)
[2018-04-12] MEDS: FERROUS SULFATE 325 MG TABLET. PO SCH (09:29)
[2018-04-12] MEDS: DOCUSATE SODIUM 100 MG CAPSULE PO SCH ×2 (09:29→21:20)
[2018-04-12] MEDS: FLUTICASONE 50MCG/NASAL SPRAY 16GM BOTTLE. NS SCH (09:30)
[2018-04-12] MEDS: CARBIDOPA 25 MG PO SCH ×3 (09:30→21:00)
[2018-04-12] MEDS: LOSARTAN 50 MG TABLET. PO SCH (09:47)
[2018-04-12 16:33] VITALS: BP 151/77
[2018-04-12] MEDS: DONEPEZIL HCL 10 MG TABLET PO SCH (17:01)
[2018-04-12] MEDS: ASPIRIN 81 MG TAB.CHEW PO SCH (17:01)
[2018-04-12] MEDS: CETIRIZINE HCL 10 MG TABLET PO SCH (17:01)
--- NOTE | 2018-04-12 19:10 | PN ---
DATE: 04/11/2018 PSYCHIATRIC PROGRESS NOTE This late entry 04/11/2018 covers elements not covered in my initial note. SUBJECTIVE: I met with the patient in the evening. The patient slept 7-3/4 hours previous night, has been somewhat withdrawn, less depressed. Her visited, she interacted better as he did with her. REVIEW OF SYSTEMS: No CV, , pulmonary, eye, ENT system symptoms on review. Reliability fair. MENTAL STATUS EXAM: Oriented to herself and situation. Speech has some latency, coherent. Abstraction fair, computation impaired, language function intact. Mood and affect remain somewhat dysphoric, but improved. No suicidal ideation. LABORATORY DATA: Reviewed. IMPRESSION: Unchanged from initial note. PLAN: No change from initial note. MAN Michael GROVES MD DR: ROMAN/ino JOB#: [id number] / [id number]
[2018-04-12] MEDS: ATORVASTATIN CALCIUM 20 MG TABLET PO SCH (21:20)
[2018-04-12] MEDS: MELATONIN 3 MG TABLET PO PRN (21:20)
--- NOTE | 2018-04-12 22:46 | PDOC ---
Exam Note: Linus Note: Please also refer to the separate dictated note~for this date of service dictated separately.~Patient seen individually. Discussed the patient with Nursing staff reviewed the chart.~Reviewed interim history and current functioning. Reviewed vital signs,~Labs/ Radiology~and current medications noted below. Continue current treatment with the changes noted in the dictated addendum note Assessment: Vital Signs: Vital Signs Date Time Temp Pulse Resp B/P (MAP) Pulse Ox O2 Delivery O2 Flow Rate FiO2 04/12/18 16:33 98.0 64 16 151/77 (101) 98 04/11/18 15:48 Room Air I&O Intake and Output 04/12/18 07:00 Intake Total 1200 ml Balance 1200 ml Intake Oral 1200 ml Current Medications: Meds: Current Medications Acetaminophen (Tylenol) 650 mg PRN Q6HRS PRN PO PAIN / TEMP; Start 04/04/18 at 04:00 Multi-Ingredient Ointment (Analgesic [place]) 1 torie PRN QID PRN TP MUSCLE PAIN; Start 04/04/18 at 04:00 Al Hydroxide/Mg Hydroxide (Mylanta Plus Xs) 15 ml PRN AFTMEALHC PRN PO DYSPEPSIA; Start 04/04/18 at 04:00 Magnesium Hydroxide (Milk Of Magnesia) 2,400 mg PRN QHS PRN PO CONSTIPATION Last administered on 04/06/18at 07:33; Start 04/04/18 at 04:00 Donepezil HCl (Aricept) 10 mg DAILYWSUP PO Last administered on 04/12/18at 17: 01; Start 04/04/18 at 17:00 Melatonin 12 mg QHS PRN PO INSOMNIA Last administered on 04/12/18at 21:20; Start 04/04/18 at 04:30 Carbidopa/Levodopa (Sinemet 25/100) 1 tab QID PO Last administered on 21:20; Start 04/04/18 at 09:00 Vitamin D (Vitamin D3) 2,000 unit BID PO Last administered on 04/12/18at 21:20 ; Start 04/04/18 at 09:00 Ferrous Sulfate (Feosol) 325 mg DAILY PO Last administered on 04/12/18at 09:29 ; Start 04/04/18 at 09:00 Glycerin (Sani-Supp Adult) 1 supp PRN DAILY PRN RC CONSTIPATION; Start at 04:45 Allopurinol (Zyloprim) 100 mg TID PO Last administered on 04/12/18 21:20; Start 04/04/18 at 09:00 Aspirin (Children'S Aspirin) 81 mg DAILYWSUP PO Last administered on 17:01; Start 04/04/18 at 17:00 Cyanocobalamin (Vitamin B-12) 1,000 mcg DAILY PO Last administered on 09:26; Start 04/04/18 at 09:00 Diltiazem HCl (Cardizem 24hr Cd) 120 mg DAILY PO Last administered on 09:47; Start 04/04/18 at 09:00 Docusate Sodium (Colace) 100 mg BID PO Last administered on 04/12/18 21:20; Start 04/04/18 at 09:00 Fluticasone Propionate (Flonase) 2 spray DAILY NS Last administered on 09:30; Start 04/04/18 at 09:00 Magnesium Oxide (Magnesium Oxide) 400 mg BID PO Last administered on 21:20; Start 04/04/18 at 09:00 Metformin HCl (Glucophage) 500 mg BIDWMEALS PO Last administered on 04/12/18 17:01; Start 04/04/18 at 08:00 Fish Oil (Fish Oil) 1,000 mg DAILY PO Last administered on 04/12/18 09:28; Start 04/04/18 at 09:00 Ondansetron HCl (Zofran Odt) 8 mg PRN BID PRN PO NAUSEA/VOMITING; Start at 04:45 Polyethylene Glycol (miraLAX) 17 gm PRN DAILY PRN PO CONSTIPATION; Start at 04:45 Non-Formulary Medication (Carbidopa ) 25 mg TID PO Last administered on 21:00; Start 04/04/18 at 09:00 Cetirizine HCl (ZyrTEC) 10 mg DAILYWSUP PO Last administered on 04/12/18 17: 01; Start 04/04/18 at 17:00 Pantoprazole Sodium (Protonix) 40 mg DAILY@0730 PO Last administered on 10/13/ 18at 09:25; Start 04/04/18 at 07:30 Non-Formulary Medication (Rasagiline Mesylate (Azilect)) 1 mg DAILY PO Last administered on 04/12/18at 09:00; Start 04/04/18 at 09:00 Atorvastatin Calcium (Lipitor) 40 mg HS PO Last administered on 04/12/18 21: 20; Start 04/04/18 at 21:00 Losartan Potassium (Cozaar) 50 mg DAILY PO Last administered on 04/12/18at 09: 47; Start 04/04/18 at 09:00 Influenza Virus Vaccine ([facility]) 0.5 ml ONCE ONCE VAX IM Last administered on 04/06/18 11:05; Start 04/06/18 at 09:00; Stop 04/06/18 at 09:01; Status DC Sertraline HCl (Zoloft) 50 mg DAILY PO Last administered on 04/09/18at 07:47; Start 04/06/18 at 09:00; Stop 04/09/18 at 17:02; Status DC Bisacodyl (Dulcolax Supp) 10 mg PRN DAILY PRN [place] CONSTIPATION Last administered on 04/06/18at 09:00; Start 04/06/18 at 07:30; Stop 04/06/18 at 10:04 ; Status DC Artificial Tears (Refresh Classic) 1 drop PRN Q15MIN PRN OU DRY EYE Last administered on 04/09/18at 14:01; Start 04/08/18 at 16:45 Sertraline HCl (Zoloft) 75 mg DAILY PO Last administered on 04/12/18at 09:28; Start 04/10/18 at 09:00 Info (FLU VACCINE per PROTOCOL) 1 ea PRN 1X PRN MC PER PROTOCOL; Start at 12:30; Status UNV Influenza Virus Vaccine ([facility] T[facility]ringe) 0.5 ml ONCE ONCE VAX IM Last administered on 04/11/18at 13:24; Start 04/11/18 at 13:00; Stop 04/11/18 at 13:01; Status DC Active Scripts Active Reported [ceta klen] Ferrous Sulfate 325 Mg Tablet 325 Mg PO DAILY Polyethylene Glycol 3350 2,500 Gm Powder 17 Gm PO PRN DAILY PRN Docusate Sodium 100 Mg Capsule 100 Mg PO BID Micardis (Telmisartan) 40 Mg Tablet 40 Mg PO DAILY Tiazac (Diltiazem Hcl) 120 Mg Capsule.er 120 Mg PO DAILY Allopurinol 100 Mg Tablet 100 Mg PO TID Azilect (Rasagiline Mesylate) 1 Mg Tablet 1 Mg PO DAILY Omeprazole 20 Mg Tablet.dr 20 Mg PO DAILY@0730 Metformin Hcl 500 Mg Tablet 500 Mg PO BIDWMEALS Aspirin 81 Mg Tab.chew 81 Mg PO DAILYWSUP Adult Glycerin (Glycerin) 1 Each Supp.rect 1 Each RC PRN DAILY PRN B-12 (Cyanocobalamin (Vitamin B-12)) 1,000 Mcg Tablet.er 1,000 Mcg PO DAILY Carbidopa 25 Mg Tablet 25 Mg PO TID Donepezil Hcl 10 Mg Tablet 10 Mg PO DAILYWSUP Magnesium Oxide 400 Mg Tablet 400 Mg PO BID Vitamin D3 (Cholecalciferol (Vitamin D3)) 1,000 Unit Tablet 2,000 Unit PO BID Zofran (Ondansetron Hcl) 8 Mg Tablet 8 Mg PO BID Crestor (Rosuvastatin Calcium) 10 Mg Tablet 10 Mg PO HS Flovent 50MCG Diskus (Fluticasone Propionate) 50 Mcg Disk.w.dev 50 Mcg IH DAILY Loratadine 10 Mg Tablet 10 Mg PO DAILYWSUP [place] 3 Fish Oil Softgel ([place]-3 Fatty Acids/Fish Oil) 1 Each Capsule.dr 1 Each PO DAILY Melatonin 3 Mg Tablet 12 Mg PO HS Sinemet 25-100 Mg Tablet (Carbidopa/Levodopa) 1 Each Tablet 1 Each PO QID I have reviewed the current psychotropics carefully including drug interactions. Risk benefit ratio favors no change other than as noted in my dictated progress note. Diagnosis: Problems: (1) Anxiety disorder (2) Major depressive disorder, recurrent episode (3) Impulse control disorder MARINA GROVES MD Apr 12, 2018 22:46
[2018-04-13 06:24] VITALS: BP 121/78
[2018-04-13] MEDS: metFORMIN 500 MG TABLET PO SCH (07:54)
[2018-04-13] MEDS: PANTOPRAZOLE 40 MG TABLET. PO SCH (07:54)
[2018-04-13] MEDS: DOCUSATE SODIUM 100 MG CAPSULE PO SCH (07:54)
[2018-04-13] MEDS: FERROUS SULFATE 325 MG TABLET. PO SCH (07:54)
[2018-04-13] MEDS: MAGNESIUM OXIDE 400 MG TABLET PO SCH (07:55)
[2018-04-13] MEDS: SERTRALINE 50 MG TABLET. PO SCH (07:56)
[2018-04-13] MEDS: CARBIDOPA/LEVODOPA 25/100MG TABLET PO SCH ×2 (07:56→13:58)
[2018-04-13] MEDS: CHOLECALCIFEROL (VITAMIN D3) 1,000 UNIT TABLET PO SCH (07:56)
[2018-04-13] MEDS: CYANOCOBALAMIN (VITAMIN B-12) 1,000 MCG TABLET. PO SCH (07:56)
[2018-04-13] MEDS: ALLOPURINOL 100 MG TABLET. PO SCH ×2 (07:57→13:58)
[2018-04-13] MEDS: FLUTICASONE 50MCG/NASAL SPRAY 16GM BOTTLE. NS SCH (07:57)
[2018-04-13 08:01] VITALS: BP 121/78
[2018-04-13] MEDS: LOSARTAN 50 MG TABLET. PO SCH (08:01)
[2018-04-13] MEDS: OMEGA-3 FATTY ACIDS/FISH OIL 1,000 MG CAPSULE. PO SCH (08:01)
[2018-04-13] MEDS: CARBIDOPA 25 MG PO SCH ×2 (08:02→13:59)
[2018-04-13] MEDS ORDERED: OMEP20TA8 PO (12:26)
[2018-04-13] MEDS ORDERED: OMEG1CAP38 PO (12:26)
[2018-04-13] MEDS ORDERED: LORA10TA3 PO (12:26)
[2018-04-13] MEDS ORDERED: POLY1DRO3 OP ×2 (12:43→12:44)
[2018-04-13] MEDS ORDERED: POLY1DRO3 OU (12:45)
[2018-04-13] MEDS ORDERED: TELM40TA PO (12:47)
[2018-04-13] MEDS ORDERED: CRESTOR10 MG PO (12:47)
[2018-04-13] MEDS ORDERED: SERT50TA PO (12:48)
--- NOTE | 2018-04-13 20:39 | PDOC ---
Exam Note: Linus Note: Please also refer to the separate dictated note~for this date of service dictated separately.~Patient seen individually. Discussed the patient with Nursing staff reviewed the chart.~Reviewed interim history and current functioning. Reviewed vital signs,~Labs/ Radiology~and current medications noted below. Continue current treatment with the changes noted in the dictated addendum note Assessment: Vital Signs: Vital Signs Date Time Temp Pulse Resp B/P (MAP) Pulse Ox O2 Delivery O2 Flow Rate FiO2 04/13/18 08:01 60 121/78 04/13/18 06:24 97.5 20 98 04/11/18 15:48 Room Air I&O Intake and Output 04/13/18 07:00 Intake Total 720 ml Balance 720 ml Intake Oral 720 ml Current Medications: Meds: Current Medications Acetaminophen (Tylenol) 650 mg PRN Q6HRS PRN PO PAIN / TEMP; Start 04/04/18 at 04:00; Stop 04/13/18 at 16:02; Status DC Multi-Ingredient Ointment (Analgesic [place]) 1 torie PRN QID PRN TP MUSCLE PAIN; Start 04/04/18 at 04:00; Stop 04/13/18 at 16:02; Status DC Al Hydroxide/Mg Hydroxide (Mylanta Plus Xs) 15 ml PRN AFTMEALHC PRN PO DYSPEPSIA; Start 04/04/18 at 04:00; Stop 04/13/18 at 16:02; Status DC Magnesium Hydroxide (Milk Of Magnesia) 2,400 mg PRN QHS PRN PO CONSTIPATION Last administered on 04/06/18at 07:33; Start 04/04/18 at 04:00; Stop 04/13/18 at 16:02; Status DC Donepezil HCl (Aricept) 10 mg DAILYWSUP PO Last administered on 04/12/18at 17: 01; Start 04/04/18 at 17:00; Stop 04/13/18 at 16:02; Status DC Melatonin 12 mg QHS PRN PO INSOMNIA Last administered on 04/12/18at 21:20; Start 04/04/18 at 04:30; Stop 04/13/18 at 16:02; Status DC Carbidopa/Levodopa (Sinemet 25/100) 1 tab QID PO Last administered on at 13:58; Start 04/04/18 at 09:00; Stop 04/13/18 at 16:02; Status DC Vitamin D (Vitamin D3) 2,000 unit BID PO Last administered on 04/13/18at 07:56 ; Start 04/04/18 at 09:00; Stop 04/13/18 at 16:02; Status DC Ferrous Sulfate (Feosol) 325 mg DAILY PO Last administered on 04/13/18at 07:54 ; Start 04/04/18 at 09:00; Stop 04/13/18 at 16:02; Status DC Glycerin (Sani-Supp Adult) 1 supp PRN DAILY PRN RC CONSTIPATION; Start at 04:45; Stop 04/13/18 at 16:02; Status DC Allopurinol (Zyloprim) 100 mg TID PO Last administered on 04/13/18at 13:58; Start 04/04/18 at 09:00; Stop 04/13/18 at 16:02; Status DC Aspirin (Children'S Aspirin) 81 mg DAILYWSUP PO Last administered on at 17:01; Start 04/04/18 at 17:00; Stop 04/13/18 at 16:02; Status DC Cyanocobalamin (Vitamin B-12) 1,000 mcg DAILY PO Last administered on at 07:56; Start 04/04/18 at 09:00; Stop 04/13/18 at 16:02; Status DC Diltiazem HCl (Cardizem 24hr Cd) 120 mg DAILY PO Last administered on at 07:58; Start 04/04/18 at 09:00; Stop 04/13/18 at 16:02; Status DC Docusate Sodium (Colace) 100 mg BID PO Last administered on 04/13/18at 07:54; Start 04/04/18 at 09:00; Stop 04/13/18 at 16:02; Status DC Fluticasone Propionate (Flonase) 2 spray DAILY NS Last administered on at 07:57; Start 04/04/18 at 09:00; Stop 04/13/18 at 16:02; Status DC Magnesium Oxide (Magnesium Oxide) 400 mg BID PO Last administered on at 07:55; Start 04/04/18 at 09:00; Stop 04/13/18 at 16:02; Status DC Metformin HCl (Glucophage) 500 mg BIDWMEALS PO Last administered on 04/13/18at 07:54; Start 04/04/18 at 08:00; Stop 04/13/18 at 16:02; Status DC Fish Oil (Fish Oil) 1,000 mg DAILY PO Last administered on 04/13/18at 08:01; Start 04/04/18 at 09:00; Stop 04/13/18 at 16:02; Status DC Ondansetron HCl (Zofran Odt) 8 mg PRN BID PRN PO NAUSEA/VOMITING; Start at 04:45; Stop 04/13/18 at 16:02; Status DC Polyethylene Glycol (miraLAX) 17 gm PRN DAILY PRN PO CONSTIPATION; Start at 04:45; Stop 04/13/18 at 16:02; Status DC Non-Formulary Medication (Carbidopa ) 25 mg TID PO Last administered on at 13:59; Start 04/04/18 at 09:00; Stop 04/13/18 at 16:02; Status DC Cetirizine HCl (ZyrTEC) 10 mg DAILYWSUP PO Last administered on 04/12/18at 17: 01; Start 04/04/18 at 17:00; Stop 04/13/18 at 16:02; Status DC Pantoprazole Sodium (Protonix) 40 mg DAILY@0730 PO Last administered on at 07:54; Start 04/04/18 at 07:30; Stop 04/13/18 at 16:03; Status DC Non-Formulary Medication (Rasagiline Mesylate (Azilect)) 1 mg DAILY PO Last administered on 04/13/18at 08:02; Start 04/04/18 at 09:00; Stop 04/13/18 at 16: 03; Status DC Atorvastatin Calcium (Lipitor) 40 mg HS PO Last administered on 04/12/18at 21: 20; Start 04/04/18 at 21:00; Stop 04/13/18 at 16:03; Status DC Losartan Potassium (Cozaar) 50 mg DAILY PO Last administered on 04/13/18at 08: 01; Start 04/04/18 at 09:00; Stop 04/13/18 at 16:03; Status DC Influenza Virus Vaccine ([facility]) 0.5 ml ONCE ONCE VAX IM Last administered on 04/06/18at 11:05; Start 04/06/18 at 09:00; Stop 04/06/18 at 09:01; Status DC Sertraline HCl (Zoloft) 50 mg DAILY PO Last administered on 04/09/18at 07:47; Start 04/06/18 at 09:00; Stop 04/09/18 at 17:02; Status DC Bisacodyl (Dulcolax Supp) 10 mg PRN DAILY PRN [place] CONSTIPATION Last administered on 04/06/18at 09:00; Start 04/06/18 at 07:30; Stop 04/06/18 at 10:04 ; Status DC Artificial Tears (Refresh Classic) 1 drop PRN Q15MIN PRN OU DRY EYE Last administered on 04/09/18at 14:01; Start 04/08/18 at 16:45; Stop 04/13/18 at 16: 03; Status DC Sertraline HCl (Zoloft) 75 mg DAILY PO Last administered on 04/13/18at 07:56; Start 04/10/18 at 09:00; Stop 04/13/18 at 16:03; Status DC Info (FLU VACCINE per PROTOCOL) 1 ea PRN 1X PRN MC PER PROTOCOL; Start at 12:30; Status UNV Influenza Virus Vaccine ([facility] Trivalent Syringe) 0.5 ml ONCE ONCE VAX IM Last administered on 04/11/18at 13:24; Start 04/11/18 at 13:00; Stop 04/11/18 at 13:01; Status DC Active Scripts Active Reported Zoloft (Sertraline Hcl) 50 Mg Tablet 1.5 Tab PO DAILY Micardis (Telmisartan) 40 Mg Tablet 40 Mg PO DAILY Crestor (Rosuvastatin Calcium) 10 Mg Tablet 10 Mg PO HS Refresh Classic Eye Drops (Polyvinyl Alcohol/Povidone/Pf) 1 Each Droperette 1 Drop OU QID PRN Omeprazole 20 Mg Tablet.dr 20 Mg PO DAILY@0730 Loratadine 10 Mg Tablet 10 Mg PO DAILYWSUP [place] 3 Fish Oil Softgel ([place]-3 Fatty Acids/Fish Oil) 1 Each Capsule.dr 1 Each PO DAILY Ferrous Sulfate 325 Mg Tablet 325 Mg PO DAILY Polyethylene Glycol 3350 2,500 Gm Powder 17 Gm PO PRN DAILY PRN Docusate Sodium 100 Mg Capsule 100 Mg PO BID Tiazac (Diltiazem Hcl) 120 Mg Capsule.er 120 Mg PO DAILY Allopurinol 100 Mg Tablet 100 Mg PO TID Azilect (Rasagiline Mesylate) 1 Mg Tablet 1 Mg PO DAILY Metformin Hcl 500 Mg Tablet 500 Mg PO BIDWMEALS Aspirin 81 Mg Tab.chew 81 Mg PO DAILYWSUP Adult Glycerin (Glycerin) 1 Each Supp.rect 1 Each RC PRN DAILY PRN B-12 (Cyanocobalamin (Vitamin B-12)) 1,000 Mcg Tablet.er 1,000 Mcg PO DAILY Carbidopa 25 Mg Tablet 25 Mg PO TID Donepezil Hcl 10 Mg Tablet 10 Mg PO DAILYWSUP Magnesium Oxide 400 Mg Tablet 400 Mg PO BID Vitamin D3 (Cholecalciferol (Vitamin D3)) 1,000 Unit Tablet 2,000 Unit PO BID Zofran (Ondansetron Hcl) 8 Mg Tablet 8 Mg PO BID PRN Flovent 50MCG Diskus (Fluticasone Propionate) 50 Mcg Disk.w.dev 50 Mcg IH DAILY Melatonin 3 Mg Tablet 12 Mg PO HS PRN Sinemet 25-100 Mg Tablet (Carbidopa/Levodopa) 1 Each Tablet 1 Each PO QID I have reviewed the current psychotropics carefully including drug interactions. Risk benefit ratio favors no change other than as noted in my dictated progress note. Diagnosis: Problems: (1) Anxiety disorder (2) Major depressive disorder, recurrent episode (3) Impulse control disorder MARINA GROVES MD Apr 13, 2018 20:39
--- NOTE | 2018-04-13 22:49 | DS ---
DATE OF DISCHARGE: 04/13/2018 DISCHARGE SUMMARY/PSYCHIATRIC PROGRESS NOTE This note covers elements not covered in my initial note 04/13/2018. REASON FOR ADMISSION: Please refer to the admission history for details. Briefly, the patient is a 72-year-old [place] female referred from the Emergency Room at [facility] where she presented with her on account of suicidal ideation. She made statements that she was ____ not going to take on her sleeping medications to end her life. She speaks very broken Citizen [place] and communication barrier made her risk even greater of hurting herself. She has been progressively more depressed, referred for inpatient psychiatric stabilization. SIGNIFICANT FINDINGS AND CLINICAL COURSE: Following admission, the patient was seen daily individually by myself from a psychiatric standpoint, medical followup with Dr. Walls/Dr. Chirinos. The patient was quite depressed, withdrawn, isolative, was able to relate that the reason she was more depressed and suicidal was because of communication problems with her who was verbally abrasive to her. She did discuss this with her and family/marital counseling was held with social service staff and readily admitted to not being aware of this and wanting to make changes, which was very positive for the patient. Adjustments were made in her psychotropic. She seemed to respond to a combination of Zoloft 75 mg a day, remained on Aricept 10 mg a day, melatonin p.r.n. and was on Sinemet for her Parkinson's. REVIEW OF SYSTEMS: Prior to discharge 04/13/2018, no CV, , pulmonary, eye, ENT system symptoms on review. MENTAL STATUS EXAM: Reasonably oriented. Speech moderate latency, often responses monosyllabic. Abstraction fair, computation impaired, language function intact. Mood and affect improved. No suicidal ideation. LABORATORY DATA: Reviewed. CONDITION AT DISCHARGE: Improved. FINAL DIAGNOSES: Major depressive disorder, recurrent, in partial remission; anxiety disorder, unspecified; impulse control disorder. Rest unchanged from admission. DISCHARGE MEDICATIONS: Please refer to the MRAD. DISCHARGE INSTRUCTIONS: Outpatient psychiatric followup at the [facility]. Time for discharge day management greater than 30 minutes. MAN Michael GROVES MD DR: ROMAN/ino JOB#: [id number] / [id number]
--- NOTE | 2018-04-14 03:38 | PN ---
DATE: 04/12/2018 This is a late entry for 04/12/2018 covers elements not covered in my initial note. SUBJECTIVE: I met with the patient in the evening. The patient slept 6-1/2 hours previous night. Overall, per nursing report, she is doing better. She still isolates herself. visited and visit was better. REVIEW OF SYSTEMS: No CV, , eye, ENT, pulmonary system symptoms on review. MENTAL STATUS EXAM: Reasonably oriented, though communication and language barrier makes her appear more confused than she is. Abstraction fair, computation unable to participate, unable to spell world forward and backward, but not because of any cognitive deficits, but rather the language barrier. Otherwise, she was smiling, pleasant. No suicidal or homicidal ideation. LABORATORY DATA: Reviewed. IMPRESSION: Major depressive disorder in partial remission. Rest unchanged. PLAN: No change from initial note. MAN Michael GROVES MD DR: ROAMN/ino JOB#: [id number] / [id number]
== END 2018-04-13 15:00 | disposition home or self-care (01) | DRG 885 ==
LOC: GEROPSY 03:09
PROVIDERS: ADMIT Psychiatry & Neurology Psychiatry; ATTEND Psychiatry & Neurology Psychiatry
DX: F33.1 Major depressive disorder, recurrent, moderate (principal); E11.9 Type 2 diabetes mellitus without complications; E78.5 Hyperlipidemia, unspecified; F41.9 Anxiety disorder, unspecified; F63.9 Impulse disorder, unspecified; G20 Parkinson's disease; I10 Essential (primary) hypertension; K59.09 Other constipation; Z79.899 Other long term (current) drug therapy; Z95.0 Presence of cardiac pacemaker; Z88.1 Allergy status to other antibiotic agents; Z88.0 Allergy status to penicillin; Z79.82 Long term (current) use of aspirin; Z79.84 Long term (current) use of oral hypoglycemic drugs
CPT/HCPCS: 36415; 80053; 80061; 82306; 82607; 83036; 83540; 83550; 83735; 84436; 84443; 84480; 85025; 86592; 90471; 90756; 93005; Q2035